=== PATIENT | female | born 1955 | race Two or more races ===

== ENCOUNTER 2017-03-26 17:33 | Inpatient (IN) | payer MEDICARE, MEDICAID ==
[2017-03-26] MEDS ORDERED: Triple Antibiotic 0.94 gm Pkt TP STA (18:30)
[2017-03-26] MEDS ORDERED: Triple Antibiotic 0.94 gm Pkt TP ONE (18:45)
[2017-03-26] MEDS ORDERED: Sulfamethoxazole/TMP 800/160mg Tab PO ONE (18:52)
[2017-03-26] MEDS ORDERED: Sulfamethoxazole/TMP 800/160mg Tab ONE (19:02)
[2017-03-26 19:17] LABS: % BASOPHILS 0.7 % (0.0-2.0); % EOSINOPHILS 3.7 % (0.0-5.0); % LYMPHOCYTES 28.8 % (20.0-50.0); % MONOCYTES 6.4 % (2.0-10.0); % NEUTROPHILS 60.4 % (40.0-80.0); BASOPHILE ABSOLUTE 0.1 Th/cumm (0-0.2); EOSINOPHILE ABSOLUTE 0.4 Th/cmm (0.1-0.4); HEMATOCRIT 26.3 % (41.0-60); HEMOGLOBIN 8.9 gm/dL (12-16); LYMPHOCYTE ABSOLUTE 2.9 Th/cmm (1.5-3.0); MEAN CELL VOLUME 96.1 fl (81-100); MEAN CORPUSCULAR HEMOGLOBIN 32.6 pg (27.0-31.0); MEAN PLATELET VOLUME 7.6 fl; MONOCYTE ABSOLUTE 0.7 Th/cmm (0.3-1.0); NEUTROPHILE ABSOLUTE 6.1 Th/cmm (1.8-8.0); PLATELET COUNT 322 Th/cmm (150-400); RED BLOOD COUNT 2.74 Mil/cmm (3.80-5.10); RED CELL DISTRIBUTION WIDTH 14.3 % (11.5-20.0); WHITE BLOOD COUNT 10.2 Th/cmm (4.8-10.8)
[2017-03-26 19:33] LABS: ALB/GLOB RATIO 0.9 (1.0-1.8); ALBUMIN 3.1 gm/dL (3.7-5.3); ANION GAP 14.9 (7.0-16.0); BILIRUBIN,TOTAL 0.3 mg/dL (0.3-1.0); CALCIUM SERUM 7.9 mg/dL (8.6-10.3); CARBON DIOXIDE 24.2 mEq/L (21.0-31.0); GFR AFRICAN-AMERICAN 13.9 ml/min (>90); GFR NON AFRICAN-AMERICAN 11.5 ml/min; POTASSIUM SERUM 5.1 mEq/L (3.5-5.1); TOTAL PROTEIN,SERUM 6.4 gm/dL (6.0-8.3)
[2017-03-26 19:34] LABS: CHOLESTEROL 153 mg/dL (<200); HDL -HIGH DENSITY LIPOPROTEIN 36 mg/dL (23-92); TRIGLYCERIDES 295 mg/dL (<150)
[2017-03-26 19:36] LABS: CREATININE - SERUM 4.2 mg/dL (0.6-1.2)
[2017-03-26] MEDS ORDERED: Linezolid 600mg/300mL 600 MG/300 ML BAG IV SCH (22:00)
[2017-03-26] MEDS: INSULIN 70/30 100 UNITS/ML SUBQ SCH (22:37)
[2017-03-27 03:29] VITALS: BP 145/82
--- NOTE | 2017-03-27 04:42 | Consultation ---
DATE OF CONSULTATION: 03/26/2017 INFECTIOUS DISEASE CONSULTATION REFERRING PHYSICIAN: Dr. Galicia. REASON FOR CONSULTATION: Left arm swelling, cellulitis and fistula infection. HISTORY OF PRESENT ILLNESS: The patient is a 61-year-old female with a past history of CKD stage V, on hemodialysis; diabetes mellitus type 2, left arm AV shunt with an open wound with very scant yellowish drainage. The patient was afebrile and WBC count was 10,000. The patient was given Bactrim and ____. The patient was started on Zyvox and Infectious Disease consultation was called for further antibiotic management. PAST MEDICAL HISTORY: Includes CKD stage V, on hemodialysis through AV shunt connected to the Perm-A-Cath now on right upper chest, the patient also has an AV shunt/AV fistula, diabetes mellitus type 2, hypertension and CKD stage 5, on hemodialysis. ALLERGIES: NKDA. MEDICATIONS: See medication reconciliation sheet. Antibiotic lópez, the patient is receiving Zyvox. SOCIAL HISTORY: The patient lives at home. Denies any smoking, alcohol or drug use. FAMILY HISTORY: Not available. REVIEW OF SYSTEMS: GENERAL: The patient denies fever or chills. HEENT: No diplopia, no photophobia, no sore throat. RESPIRATORY: No cough, no shortness of breath. CVS: No chest pain or palpitation. GASTROINTESTINAL: No nausea, no vomiting, no diarrhea, no constipation. GENITOURINARY: No dysuria. NEUROLOGIC: No headache, no dizziness, no focal weakness. SKIN: The patient has swelling and redness of the old AV shunt site with some mild discharge. PHYSICAL EXAMINATION: VITAL SIGNS: Current vital signs shows temperature is 96.4, pulse 68, respirations 19, blood pressure 145/82. GENERAL: The patient is comfortable, lying in the bed, not in acute distress. HEENT: Head is normocephalic, atraumatic. Oral cavity moist, pink tongue. Eyes: No pallor, no icterus. PERRLA. EOMI. NECK: Supple. No JVD. No carotid bruit. Trachea in midline. CHEST: Bilateral breath sounds. No crackles or wheezing. HEART: S1, S2 within normal limits. Regular rhythm. ABDOMEN: Soft, nontender, nondistended. Bowel sounds present. EXTREMITIES: No cyanosis, no clubbing, no edema. The patient's left forearm and antecubital fossa, the patient has surgical scar with surrounding erythema. The wound is open with yellow slough and phlegm. CENTRAL NERVOUS SYSTEM: Alert, awake, oriented x 3. LABORATORY DATA: Current labs show WBC 10,200, hemoglobin 8.9, hematocrit 26.3, platelets are 322,000, neutrophil is 60.4%. Sodium is 132, potassium 5.1, chloride 98, bicarbonate is 24, BUN is 47, creatinine 4.2 and glucose is 150. LFTs are reviewed. IMPRESSION: Left arm cellulitis. Left arm wound. RECOMMENDATION AND PLAN: Change Zyvox to vancomycin IV and check the wound culture and susceptibility. Thank you Dr. Galicia for involving me in taking care of this patient. JOB# [id number]
[2017-03-27] MEDS: INSULIN ASPART, RECOMBINANT 100 UNITS/ML SUBQ SCH ×4 (06:38→18:40)
[2017-03-27 07:05] LABS: % BASOPHILS 0.2 % (0.0-2.0); % EOSINOPHILS 4.4 % (0.0-5.0); % LYMPHOCYTES 34.7 % (20.0-50.0); % MONOCYTES 6.3 % (2.0-10.0); % NEUTROPHILS 54.4 % (40.0-80.0); EOSINOPHILE ABSOLUTE 0.4 Th/cmm (0.1-0.4); HEMATOCRIT 26.3 % (41.0-60); HEMOGLOBIN 8.9 gm/dL (12-16); LYMPHOCYTE ABSOLUTE 3.5 Th/cmm (1.5-3.0); MEAN CELL VOLUME 95.6 fl (81-100); MEAN CORPUSCULAR HEMOGLOBIN 32.2 pg (27.0-31.0); MEAN CORPUSCULAR HGB CONC 33.7 pg (28.0-36.0); MEAN PLATELET VOLUME 7.5 fl; MONOCYTE ABSOLUTE 0.6 Th/cmm (0.3-1.0); NEUTROPHILE ABSOLUTE 5.5 Th/cmm (1.8-8.0); PLATELET COUNT 362 Th/cmm (150-400); RED BLOOD COUNT 2.75 Mil/cmm (3.80-5.10)
[2017-03-27 07:18] LABS: ANION GAP 13.4 (7.0-16.0); CALCIUM SERUM 7.9 mg/dL (8.6-10.3); CARBON DIOXIDE 25.7 mEq/L (21.0-31.0); GFR AFRICAN-AMERICAN 13.2 ml/min (>90); GFR NON AFRICAN-AMERICAN 10.9 ml/min; POTASSIUM SERUM 4.1 mEq/L (3.5-5.1)
[2017-03-27 07:22] LABS: CREATININE - SERUM 4.4 mg/dL (0.6-1.2)
[2017-03-27] MEDS ORDERED: INSULIN 70/30 100 UNITS/ML SUBQ SCH (07:30)
[2017-03-27] MEDS: INSULIN 70/30 100 UNITS/ML SUBQ SCH ×2 (08:00→20:24)
[2017-03-27] MEDS: Lactulose 10 Gm/15 mL 30mL UDC PO SCH ×2 (14:49→18:41)
--- NOTE | 2017-03-27 18:31 | History & Physical ---
ADMIT DATE: 03/26/2017 HISTORY OF PRESENT ILLNESS: This is an elderly female. The patient is a 61-year-old female and looks much aged than that, was admitted from the ER for left arm cellulitis, history of end-stage renal disease on hemodialysis, and history of dementia. The patient was admitted, was started on her IVs, and the patient was started on Zyvox. I asked the vascular surgeon to do the vascular access and also had call Dr. Nas Ramirez from Nephrology for dialysis and Infectious Disease doctor, Dr. Kunz. Dr. Kunz opined that the patient has left arm cellulitis, left arm wound, and AV fistula in the left arm. When I was examining the patient, the patient was not able to give me much story. Essentially complaining of severe weakness. He is somewhat lethargic, lying in the bed. PHYSICAL EXAMINATION: HEENT: Normocephalic. Pupils equal and reactive to light. NECK: Supple, nontender. LUNGS: Clear. CARDIOVASCULAR SYSTEM: S1, S2 heard. ABDOMEN: Soft. EXTREMITIES: Left forearm area, a surgical scar surrounding erythema and some yellow slough indicating cellulitis. LABORATORY DATA: Showed white count was 10,000, hemoglobin 8.9, hematocrit was 26, BUN 47, creatinine 4.2 indicating end-stage renal disease stage 5. DIAGNOSES: Left arm cellulitis. Left arm wound, rule out sepsis, history of end-stage renal disease on dialysis, right PermCath and infected left AV shunt area. The patient was started on Zyvox which was changed to vancomycin by Dr. Kunz. The patient had all the lab work done including CBC, white count, and blood cultures. We are waiting for that and we will manage and also patient needs a vascular access at this point and she will go to get a PICC line. JOB# [id number]
[2017-03-27 20:49] LABS: A1C % 8.5 % (4.0-6.0)
[2017-03-28] MEDS: INSULIN ASPART, RECOMBINANT 100 UNITS/ML SUBQ SCH ×4 (00:07→17:35)
--- NOTE | 2017-03-28 02:06 | ER Physician Documentation ---
DATE OF SERVICE: 03/26/2017 EMERGENCY ROOM EVALUATION AND TREATMENT HISTORY OF PRESENT ILLNESS: A 61-year-old female patient, who came into the Emergency Room from home. She was discharged from [facility] where yesterday I believe they tried to put some catheter into the left arm, maybe a shunt into the left arm, but I believe it was unsuccessful or whatever happened, there is a tiny little 1 cm or little more than 1.5 cm type of scar with evidence of localized infection present in the left upper arm and the patient has a Perm-A-Cath placed in the right subclavian vein from where she gets dialysis. She was dialyzed yesterday. She came from home; hence, she did not bring her any medications. Whatever she could remember that is the history she gave me. Her main history is that she came here because she has this hemodialysis program that she gets it and her primary MD is Dr. Galicia, who advised that the patient to go to this institution for further care. At this institution, the triage nurse saw the patient, took the vital signs, temperature was 98.4, pulse was 59, respiration was 18, blood pressure was 129/46, oxygen saturation was 100%, height of 5 feet 2 inches, and weight of 123 pounds. Occasionally, she used to smoke in the past, maybe one cigarette a month, but not now. The patient has no other significant complaints. She said she has end-stage renal failure. There is chronic kidney disease. She has diabetes mellitus. She takes insulin 70/30, 30 units in the morning, 20 units at night time. She does not remember any other medication that she is taking. She says she has schizophrenia and she has hypercholesterolemia. 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 The patient's ENT has no significant complaints. I believe most of her veins are clogged up and there is difficulty in putting in the central catheters, but the surgeon has good job in putting at least a Perm-A-Cath that should last for about 3 months for her. In the meantime, perhaps they can reattempt to put a shunt in the left upper arm. Otherwise, they might have to go into the leg to put it in. Pulmonary lópez, the patient does not have any shortness of breath, PND, orthopnea, dyspnea on exertion. The patient is able to walk with the help of the stick, but the patient is unstable. Hence, she does not usually walk, but she walks as needed. Cardiac lópez, the patient does not have any angina pectoris, myocardial infarction, rheumatic fever, valvular heart disease, pericardial disease, or cardiomyopathy. Endocrine lópez, she has diabetes mellitus, I am not sure whether she has any diabetes; she has any thyroid disease, hypo or hyperthyroidism. We will check the T4 and TSH level, hemoglobin A1c level and see what happens. GI lópez, the patient does not have any diarrhea, constipation, or vomiting. The patient does not have any upper GI bleeding or lower GI bleeding. Genitourinary lópez, the patient does make some urine whenever she has to go; how much urine she makes a quantity lópez she cannot describe, but she does make some urine that is what she told, it is possible that little urine that is residual urine could cause infection in her and that there is a trouble, so we will see if we can get a urine culture in her and urinalysis in her if at all she is able to give it to us. Her bones and joints, no specific complaints. There are no metastatic problems. No back pain. No history of any joint replacement. Hematology and oncology lópez, the patient does not have any tumor, cancers, etc. PHYSICAL EXAMINATION: Done on 03/26/2017, the patient appears to be awake, alert. She knows she came here; yesterday she was at [facility], she described that to me. She came from home. She did not bring any medications with her, so we do not have any medications, perhaps when Dr. Galicia comes in, he might know most of the medications and he might put it in. At the present moment, I have given some doxycycline that should cover the gram-positive as well as some gram-negative and it may cover even the MRSA, these days the doxycycline has come back the old time medication, but the nichols of this drug has also gone up considerably, but 100 mg has been given and I believe 100 mg twice a day might be needed, but Dr. Galicia might know whether she needs this medication or localized treatment in the left arm with localized bacitracin ointment with ____ dressing might also suffice if the patient does not have any problem of systemic infection. The patient does not have any bleeding disorders. She does not have any angina pectoris, rheumatic fever, valvular heart disease, or pericardial disease. The patient's previous surgery includes history of cholecystectomy. The patient's abdomen is a big, protuberant, but is just obese lady. There is no ascites present in the abdomen. There is also another midline small about 2-inch scar in the midline which she does not know why that scar is there, but the scar is over there. The patient's liver and spleen are not enlarged. No free fluid in the abdominal cavity. Central nervous system is grossly within normal limits. Heart reveals normal heart sounds. Soft fourth heart sound. Third heart sound is absent. Second heart sound is physiologically split. The patient denied any myocardial infarction. As I mentioned earlier, EKG was done by the tax map technician at 06:20:45 second p.m. showing normal sinus rhythm. There is suggestion of old inferior wall myocardial infarction. There is minor nonspecific ST segment depression, which may be secondary to the drug effect and/or possible ischemia, drug effect, etc., but no acute severe pathology of cardiac problem is detected. Old inferior wall LA is a very likely possibility, sometimes Q-waves are seen in the inferior wall as a result of obesity and obese abdomen. Central nervous system is grossly within normal limits, moves all of the extremities, no edema, no cyanosis, no petechia, and no ecchymosis. Peripheral pulses are normal. Reflexes are normal. Plantars are downgoing. FINAL IMPRESSION: The patient presented to our institution from home, a patient of Dr. Galicia and she has the following problems: 1. Chronic kidney disease. 2. Diabetes mellitus, noninsulin-dependent. She is on insulin 70/30, 30 units in the morning, 20 at night. 3. The patient has hypertension. 4. The patient has been on hemodialysis program. She got hemodialysis done yesterday. She had a shunt, Perm-A-Cath inserted into the right subclavian vein and the patient has small incisional infection into the left arm from where I believe they might have tried to put in a shunt, I am not sure, Dr. Galicia should let you know. Most of the baseline medication orders are written there. Family history was unknown and hence it is not inserted. She is not . She has no children according to her. She lives in caretakers home and how much money she is giving is not known, but she is happy and comfortable over there. The patient will notify Dr. Galicia that the patient is here and we will see what he wants to do and depending upon what he wants to do, we will do the needful as this patient belongs to him. The other diagnosis is mild obesity. Any other diagnosis that Dr. Galicia might remember will be put it on. The patient also has schizophrenia, chronic kidney disease, hypertension, and possible hypertensive heart disease. Most likely, the patient has old inferior wall myocardial infarction and diabetes mellitus is secondary to coronary artery disease in 500-700% of the patients, this is likely the cause of the renal failure and in this patient also probably that is the cause. [facility]# [id number]
[2017-03-28 05:27] LABS: % BASOPHILS 0.8 % (0.0-2.0); % LYMPHOCYTES 34.2 % (20.0-50.0); % MONOCYTES 7.4 % (2.0-10.0); % NEUTROPHILS 52.6 % (40.0-80.0); BASOPHILE ABSOLUTE 0.1 Th/cumm (0-0.2); EOSINOPHILE ABSOLUTE 0.5 Th/cmm (0.1-0.4); HEMATOCRIT 26.3 % (41.0-60); HEMOGLOBIN 8.6 gm/dL (12-16); LYMPHOCYTE ABSOLUTE 3.3 Th/cmm (1.5-3.0); MEAN CELL VOLUME 96.5 fl (81-100); MEAN CORPUSCULAR HEMOGLOBIN 31.7 pg (27.0-31.0); MEAN CORPUSCULAR HGB CONC 32.8 pg (28.0-36.0); MEAN PLATELET VOLUME 7.2 fl; MONOCYTE ABSOLUTE 0.7 Th/cmm (0.3-1.0); NEUTROPHILE ABSOLUTE 5.1 Th/cmm (1.8-8.0); PLATELET COUNT 330 Th/cmm (150-400); RED BLOOD COUNT 2.72 Mil/cmm (3.80-5.10); RED CELL DISTRIBUTION WIDTH 14.4 % (11.5-20.0); WHITE BLOOD COUNT 9.7 Th/cmm (4.8-10.8)
[2017-03-28 05:51] LABS: ANION GAP 11.9 (7.0-16.0); BILIRUBIN,TOTAL 0.3 mg/dL (0.3-1.0); CARBON DIOXIDE 25.6 mEq/L (21.0-31.0); GFR AFRICAN-AMERICAN 10.2 ml/min (>90); GFR NON AFRICAN-AMERICAN 8.4 ml/min; PHOSPHOROUS 4.5 mg/dL (2.5-5.0); POTASSIUM SERUM 4.5 mEq/L (3.5-5.1)
[2017-03-28 05:56] LABS: CREATININE - SERUM 5.5 mg/dL (0.6-1.2)
[2017-03-28 06:00] LABS: INR 0.97 (0.5-1.4); PROTHROMBIN TIME (TEST) 10.1 SECONDS (9.5-11.5)
--- NOTE | 2017-03-28 06:03 | Consultation ---
DATE OF CONSULTATION: 03/27/2017 AGE OF PATIENT: 61 years. SEX: Female. RACE: . REASON FOR CONSULTATION: Evaluation of renal status and management. HISTORY OF PRESENT ILLNESS: This patient is not able to give much more detailed history. She only knows that she has been on dialysis for 2 years and Tuesday, apparently, the access was not working and they put in a new catheter in the right subclavian area. In addition to that, it looks like somebody has close the old fistula on the left arm area, reason for this is not known, but patient states, that was infected, that is why they had to "close it." The patient does not know much more details. She lives in the care of a rn prior authorization in [facility]. The patient has been referred to me through the courtesy of Dr. Galicia. The patient stated that she gets dialyzed on Tuesday, Tuesday and Tuesday. Last dialysis was done on Tuesday. The patient denies any chest pain, shortness of breath or any other problems right now. PAST MEDICAL HISTORY: Considering the history available on examination, the patient does have a history of diabetes mellitus, hypertension, and also the patient is on dialysis for probably secondary to chronic renal failure suggested by. SOCIAL HISTORY: On further questioning and history taking, the patient stated she had been a smoker for a long time. She has stopped now. She had been also drinking on the weekends. 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 Not much more history available. MEDICATIONS: List of medications got from the rn prior authorization had been amlodipine 10 mg p.o. daily; bupropion 150 mg p.o. daily, which is Wellbutrin sustained release; buspirone 15 mg daily; carvedilol 12.5 mg b.i.d.; hydrochlorothiazide 25 mg daily; also quinapril 10 mg daily; Renvela, dose is not known. The patient has been also taking Detrol-LA along with insulin coverage. PHYSICAL EXAMINATION: VITAL SIGNS: On clinical examination, the patient is afebrile at the present time. Blood pressures are somewhat on the low side as per nursing treatment. Heart rate is around 80 per minute. Latest blood pressures had been 115/62, 97.2 degree temperature, respirations 22, and O2 saturation 99%. NECK: Jugular venous pressure is not raised. CHEST: Reveals good air entry bilaterally. CARDIOVASCULAR: Heart sounds S1, S2 normally heard. No S3 or S4 noticed. ABDOMEN: Soft, nontender. EXTREMITIES: She does not have any significant edema at the present time. NEUROLOGIC: On further evaluation, neurologically, although she speaks with a slowest speech, does not seem to be having any local or focal weakness. LABORATORY DATA: Last chemistries which are as follows: Hemoglobin 8.9 grams percent; WBC count 10,000. Sodium 135, potassium 4.1, chloride 100, CO2 content 25.7, creatinine 4.4 and BUN 52. The patient's catheter was removed. Sutures are still there in the left arm and left subclavian area. PLAN: To review these medications and would suggest discontinuing hydrochlorothiazide, since the patient is on dialysis, also reducing the amlodipine to 5 mg daily since blood pressure is running low. Leave the other medications to Dr. Galicia to modify. The patient is not on water soluble vitamins, which need to be on, so patient would be on Nephro-Ramirez 1 tablet p.o. daily. The patient will be dialyzed tomorrow and repeat the chemistries and reviewed again what further needs to be done. [facility]# [id number]
[2017-03-28] MEDS: INSULIN 70/30 100 UNITS/ML SUBQ SCH ×2 (06:34→21:54)
--- NOTE | 2017-03-28 10:17 | General Progress Note ---
Subjective - Review of Systems Events since last encounter: patient tolerating antibiotics admitted for left arm cellulitis r/o sepsis Objective - Results Result Diagrams: 03/28/17 05:16 03/28/17 05:16 Recent Labs: Laboratory Last Values WBC 9.7 Th/cmm (4.8-10.8) 03/28/17 05:16 RBC 2.72 Mil/cmm (3.80-5.10) L 03/28/17 05:16 Hgb 8.6 gm/dL (12-16) L 03/28/17 05:16 Hct 26.3 % (41.0-60) L 03/28/17 05:16 MCV 96.5 fl (81-100) 03/28/17 05:16 MCH 31.7 pg (27.0-31.0) H 03/28/17 05:16 MCHC Differential 32.8 pg (28.0-36.0) 03/28/17 05:16 RDW 14.4 % (11.5-20.0) 03/28/17 05:16 Plt Count 330 Th/cmm (150-400) 03/28/17 05:16 MPV 7.2 fl 03/28/17 05:16 Neutrophils % 52.6 % (40.0-80.0) 03/28/17 05:16 Lymphocytes % 34.2 % (20.0-50.0) 03/28/17 05:16 Monocytes % 7.4 % (2.0-10.0) 03/28/17 05:16 Eosinophils % 5.0 % (0.0-5.0) 03/28/17 05:16 Basophils % 0.8 % (0.0-2.0) 03/28/17 05:16 PT 10.1 SECONDS (9.5-11.5) 03/28/17 05:16 INR 0.97 (0.5-1.4) 03/28/17 05:16 PTT (Actin FS) 26.2 SECONDS (26.0-38.0) 03/28/17 05:16 Sodium 134 mEq/L (136-145) L 03/28/17 05:16 Potassium 4.5 mEq/L (3.5-5.1) 03/28/17 05:16 Chloride 101 mEq/L (98-107) 03/28/17 05:16 Carbon Dioxide 25.6 mEq/L (21.0-31.0) 03/28/17 05:16 Anion Gap 11.9 (7.0-16.0) 03/28/17 05:16 BUN 66 mg/dL (7-25) H 03/28/17 05:16 Creatinine 5.5 mg/dL (0.6-1.2) H* 03/28/17 05:16 Est GFR ( Amer) 10.2 ml/min (>90) 03/28/17 05:16 Est GFR (Non-Af Amer) 8.4 ml/min 03/28/17 05:16 BUN/Creatinine Ratio 12.0 03/28/17 05:16 Glucose 92 mg/dL (70-105) 03/28/17 05:16 POC Glucose 93 MG/DL (70 - 105) 03/28/17 05:14 Hemoglobin A1c % 8.5 % (4.0-6.0) H 03/26/17 18:58 Whole Bld Lactic Acid 1.33 mmol/L (0.60-1.99) 03/26/17 18:58 Calcium 8.0 mg/dL (8.6-10.3) L 03/28/17 05:16 Phosphorus 4.5 mg/dL (2.5-5.0) 03/28/17 05:16 Total Bilirubin 0.3 mg/dL (0.3-1.0) 03/28/17 05:16 AST 10 U/L (13-39) L 03/28/17 05:16 ALT 10 U/L (7-52) 03/28/17 05:16 Alkaline Phosphatase 59 U/L (34-104) 03/28/17 05:16 C-Reactive Protein 4.2 mg/dL (0.0-0.9) H 03/26/17 18:58 B-Natriuretic Peptide 173.0 pg/mL (5.0-100.0) H 03/26/17 18:58 Total Protein 6.0 gm/dL (6.0-8.3) 03/28/17 05:16 Albumin 3.0 gm/dL (3.7-5.3) L 03/28/17 05:16 Globulin 3.0 gm/dL 03/28/17 05:16 Albumin/Globulin Ratio 1.0 (1.0-1.8) 03/28/17 05:16 Triglycerides 295 mg/dL (<150) H 03/26/17 18:58 Cholesterol 153 mg/dL (<200) 03/26/17 18:58 LDL Cholesterol Direct 92 mg/dL (75-193) 03/26/17 18:58 HDL Cholesterol 36 mg/dL (23-92) 03/26/17 18:58 TSH 0.95 uIU/ml (0.34-5.60) 03/26/17 18:58 Random Vancomycin 20.1 ug/mL (5.0-40.0) 03/28/17 05:16 - Physical Exam Vitals and I&O: Vital Signs Temp 97.4 F 03/28/17 07:56 Pulse 56 03/28/17 07:56 Resp 20 03/28/17 07:56 BP 130/59 03/28/17 07:56 Pulse Ox 97 03/28/17 07:56 Intake & Output 03/27/17 03/28/17 03/28/17 18:59 06:59 18:59 Intake Total 800 Balance 800 Weight (lbs) 88.904 kg 89.993 kg Intake: Oral 800 Other: # Voids 3 # Bowel Movements 0 Active Medications: Current Medications Amlodipine Besylate (Norvasc) 5 mg PO DAILY [facility] Stop: 05/26/17 11:29 Last Admin: 03/27/17 12:13 Dose: 5 mg Bupropion HCl (Wellbutrin Sr) 150 mg PO DAILY [facility] PRN Reason: Protocol Stop: 05/27/17 08:59 Buspirone HCl (Buspar) 15 mg PO DAILY [facility] Stop: 05/27/17 08:59 Carvedilol (Coreg) 12.5 mg PO BID [facility] Stop: 05/26/17 16:59 Last Admin: 03/27/17 17:54 Dose: 12.5 mg Epoetin Jacek (Epogen) 4,000 units IVP MoWeFr [facility] Stop: 05/27/17 11:23 Insulin Aspart (Novolog) 0 units SUBQ Q6HR [place] PRN Reason: Protocol Stop: 05/26/17 00:00 Last Admin: 03/28/17 05:22 Dose: Not Given Insulin Human Isoph/Insulin Regular (Novolin 70/30) 20 units SUBQ HS [place] PRN Reason: Protocol Stop: 05/25/17 21:29 Last Admin: 03/27/17 20:24 Dose: 20 units Insulin Human Isoph/Insulin Regular (Novolin 70/30) 30 units SUBQ QDAC [place] PRN Reason: Protocol Stop: 05/26/17 07:29 Last Admin: 03/28/17 06:34 Dose: Not Given Lactulose (Cephulac) 20 gm PO BID [place] Stop: 05/26/17 13:44 Last Admin: 03/27/17 18:41 Dose: Not Given Lisinopril (Zestril) 10 mg PO DAILY [facility] Stop: 05/27/17 08:59 Miscellaneous (Vancomycin Iv Per Pharmacy) 1 ea [facility] PRN [place] Stop: 05/26/17 03:14 Sevelamer Carbonate (Renvela) 800 mg PO TIDWM [place] Stop: 05/26/17 16:59 Last Admin: 03/28/17 07:02 Dose: 800 mg
[2017-03-28] MEDS: Lactulose 10 Gm/15 mL 30mL UDC PO SCH ×2 (10:38→17:30)
--- NOTE | 2017-03-28 12:37 | Infectious Disease Prog Note ---
Infectious Disease Subjective - Review of Systems Service Date: 03/28/17 Subjective: No chnage, no fever. Infectious Disease Objective - Results Result Diagrams: 03/28/17 05:16 03/28/17 05:16 Recent Labs: Laboratory Last Values WBC 9.7 Th/cmm (4.8-10.8) 03/28/17 05:16 RBC 2.72 Mil/cmm (3.80-5.10) L 03/28/17 05:16 Hgb 8.6 gm/dL (12-16) L 03/28/17 05:16 Hct 26.3 % (41.0-60) L 03/28/17 05:16 MCV 96.5 fl (81-100) 03/28/17 05:16 MCH 31.7 pg (27.0-31.0) H 03/28/17 05:16 MCHC Differential 32.8 pg (28.0-36.0) 03/28/17 05:16 RDW 14.4 % (11.5-20.0) 03/28/17 05:16 Plt Count 330 Th/cmm (150-400) 03/28/17 05:16 MPV 7.2 fl 03/28/17 05:16 Neutrophils % 52.6 % (40.0-80.0) 03/28/17 05:16 Lymphocytes % 34.2 % (20.0-50.0) 03/28/17 05:16 Monocytes % 7.4 % (2.0-10.0) 03/28/17 05:16 Eosinophils % 5.0 % (0.0-5.0) 03/28/17 05:16 Basophils % 0.8 % (0.0-2.0) 03/28/17 05:16 PT 10.1 SECONDS (9.5-11.5) 03/28/17 05:16 INR 0.97 (0.5-1.4) 03/28/17 05:16 PTT (Actin FS) 26.2 SECONDS (26.0-38.0) 03/28/17 05:16 Sodium 134 mEq/L (136-145) L 03/28/17 05:16 Potassium 4.5 mEq/L (3.5-5.1) 03/28/17 05:16 Chloride 101 mEq/L (98-107) 03/28/17 05:16 Carbon Dioxide 25.6 mEq/L (21.0-31.0) 03/28/17 05:16 Anion Gap 11.9 (7.0-16.0) 03/28/17 05:16 BUN 66 mg/dL (7-25) H 03/28/17 05:16 Creatinine 5.5 mg/dL (0.6-1.2) H* 03/28/17 05:16 Est GFR ( Amer) 10.2 ml/min (>90) 03/28/17 05:16 Est GFR (Non-Af Amer) 8.4 ml/min 03/28/17 05:16 BUN/Creatinine Ratio 12.0 03/28/17 05:16 Glucose 92 mg/dL (70-105) 03/28/17 05:16 POC Glucose 136 MG/DL (70 - 105) H 03/28/17 11:54 Hemoglobin A1c % 8.5 % (4.0-6.0) H 03/26/17 18:58 Whole Bld Lactic Acid 1.33 mmol/L (0.60-1.99) 03/26/17 18:58 Calcium 8.0 mg/dL (8.6-10.3) L 03/28/17 05:16 Phosphorus 4.5 mg/dL (2.5-5.0) 03/28/17 05:16 Total Bilirubin 0.3 mg/dL (0.3-1.0) 03/28/17 05:16 AST 10 U/L (13-39) L 03/28/17 05:16 ALT 10 U/L (7-52) 03/28/17 05:16 Alkaline Phosphatase 59 U/L (34-104) 03/28/17 05:16 C-Reactive Protein 4.2 mg/dL (0.0-0.9) H 03/26/17 18:58 B-Natriuretic Peptide 173.0 pg/mL (5.0-100.0) H 03/26/17 18:58 Total Protein 6.0 gm/dL (6.0-8.3) 03/28/17 05:16 Albumin 3.0 gm/dL (3.7-5.3) L 03/28/17 05:16 Globulin 3.0 gm/dL 03/28/17 05:16 Albumin/Globulin Ratio 1.0 (1.0-1.8) 03/28/17 05:16 Triglycerides 295 mg/dL (<150) H 03/26/17 18:58 Cholesterol 153 mg/dL (<200) 03/26/17 18:58 LDL Cholesterol Direct 92 mg/dL (75-193) 03/26/17 18:58 HDL Cholesterol 36 mg/dL (23-92) 03/26/17 18:58 TSH 0.95 uIU/ml (0.34-5.60) 03/26/17 18:58 Random Vancomycin 20.1 ug/mL (5.0-40.0) 03/28/17 05:16 - Physical Exam Vitals and I&O: Vital Signs Temp 97.4 F 03/28/17 07:56 Pulse 60 03/28/17 10:40 Resp 20 03/28/17 07:56 BP 130/59 03/28/17 10:40 Pulse Ox 97 03/28/17 07:56 Intake & Output 03/27/17 03/28/17 03/28/17 18:59 06:59 18:59 Intake Total 800 Balance 800 Weight (lbs) 88.904 kg 89.993 kg Intake: Oral 800 Other: # Voids 3 # Bowel Movements 0 Active Medications: Current Medications Amlodipine Besylate (Norvasc) 5 mg PO DAILY [facility] Stop: 05/26/17 11:29 Last Admin: 03/28/17 10:38 Dose: 5 mg Bupropion HCl (Wellbutrin Sr) 150 mg PO DAILY [facility] PRN Reason: Protocol Stop: 05/27/17 08:59 Last Admin: 03/28/17 10:40 Dose: 150 mg Buspirone HCl (Buspar) 15 mg PO DAILY [facility] Stop: 05/27/17 08:59 Last Admin: 03/28/17 10:39 Dose: 15 mg Carvedilol (Coreg) 12.5 mg PO BID [facility] Stop: 05/26/17 16:59 Last Admin: 03/28/17 10:40 Dose: 12.5 mg Epoetin Jacek (Epogen) 4,000 units IVP MoWeFr [facility] Stop: 05/27/17 17:59 Vancomycin HCl 1.25 gm/ (Dextrose) 250 mls @ 165 mls/hr IV ONCE ONE Stop: 03/28/17 18:30 Insulin Aspart (Novolog) 0 units SUBQ Q6HR [place] PRN Reason: Protocol Stop: 05/26/17 00:00 Last Admin: 03/28/17 12:24 Dose: Not Given Insulin Human Isoph/Insulin Regular (Novolin 70/30) 20 units SUBQ HS [place] PRN Reason: Protocol Stop: 05/25/17 21:29 Last Admin: 03/27/17 20:24 Dose: 20 units Insulin Human Isoph/Insulin Regular (Novolin 70/30) 30 units SUBQ QDAC [place] PRN Reason: Protocol Stop: 05/26/17 07:29 Last Admin: 03/28/17 06:34 Dose: Not Given Lactulose (Cephulac) 20 gm PO BID [facility] Stop: 05/26/17 13:44 Last Admin: 03/28/17 10:38 Dose: 20 gm Lisinopril (Zestril) 10 mg PO DAILY [place] Stop: 05/27/17 08:59 Last Admin: 03/28/17 10:39 Dose: 10 mg Miscellaneous (Vancomycin Iv Per Pharmacy) 1 ea [facility] PRN [place] Stop: 05/26/17 03:14 Sevelamer Carbonate (Renvela) 800 mg PO TIDWM [place] Stop: 05/26/17 16:59 Last Admin: 03/28/17 07:02 Dose: 800 mg General: no acute distress, well developed, well nourished HEENT: atraumatic, normocephalic, PERRLA Neck: supple, no thyromegaly, no lymphadenopathy Cardiovascular: S1S2, regular Lungs: clear to auscultation bilaterally, clear to percussion Abdomen: soft, no tender, no distended Extremities: other (left arm wound.), no cyanosis, no clubbing, no edema Infectious Disease Assmt/Plan - Assessment Assessment: 1. Left arm cellulitis. 2. Left arm wound. - Plan Plan: Continue vancomycin/
[2017-03-28] MEDS: Epoetin Alfa 20000 Units/mL Vial IVP SCH (21:53)
[2017-03-29] MEDS: INSULIN ASPART, RECOMBINANT 100 UNITS/ML SUBQ SCH ×4 (05:39→17:07)
[2017-03-29] MEDS: INSULIN 70/30 100 UNITS/ML SUBQ SCH ×2 (06:33→20:59)
--- NOTE | 2017-03-29 07:53 | Consultation ---
DATE OF CONSULTATION: The patient was seen and evaluated. The patient's chart reviewed. This is Dr. Cerda doing initial psychiatric evaluation. CONSULTING PHYSICIAN: Dr. Cerda. REFERRING PHYSICIAN: Dr. Galicia. REASON FOR CONSULTATION: History of depression. HISTORY OF PRESENT ILLNESS: She is a 61-year-old female with a previous history of depression, admitted here from the ER for left arm cellulitis and history of end-stage renal disease, on hemodialysis. She was also started on Zyvox. Today on [id number] evaluation, the patient reported that she has been on Wellbutrin and BuSpar for quite some time and reports that her anxiety and depression has been under control. She denies any suicidal or homicidal ideation. She reports her mood is okay, sleeping well, good appetite. Denies any adverse effects of medications or side effects of medications. PAST PSYCHIATRIC HISTORY: Depression. PAST MEDICAL HISTORY: Includes left arm cellulitis, CKD, history of hypertension, diabetes, on hemodialysis. ALLERGIES TO MEDICATIONS: NKDA. FAMILY PSYCHIATRIC HISTORY: Denied. LEGAL HISTORY: Denied. PSYCHOSOCIAL ENVIRONMENTAL HISTORY: ____ home, has a caregiver. Denies any illicit drug use. Denies any alcohol. Denies any tobacco. CURRENT MEDICATIONS: Bupropion 150 a day, Coreg, Epogen, lactulose, BuSpar 50 mg a day. LABORATORY DATA: Labs reviewed. Sodium of 135, BUN and creatinine are 52 and 4.4 respectively. Pending ammonia levels. MENTAL STATUS EXAMINATION: She is calm in her room, engaged inappropriately. No suicidal or homicidal ideation. Awake and alert x 3. Good insight, judgment and impulse control. No psychosis, no delusions. Suicidal or homicidal risk is low, no ideation, no plan, no intent, no ____. ASSESSMENT: The patient is a 61-year-old female with a history of depression, stabilized medically with the current psychiatric medications. Recommend to check ammonia levels. Recommend to continue monitoring and evaluating. PRIMARY DIAGNOSES: Major depressive disorder, severe, recurrent, without psychosis. SECONDARY DIAGNOSES: None. MEDICAL DIAGNOSES: As noted above. PLAN: 1. ____. 2. Continue monitoring and evaluating. 3. Continue Wellbutrin with BuSpar. 4. Thank you for the consultation. We will continue to follow alongside. 5. Discussed coping skills, provide supportive therapy and discussed the plan in great detail with the staff. [facility]# [id number]
[2017-03-29] MEDS: Lactulose 10 Gm/15 mL 30mL UDC PO SCH ×2 (09:31→16:08)
--- NOTE | 2017-03-29 11:27 | General Progress Note ---
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, occluded has right subclavian Permcath needl blood culture, removal of left foream graft due to infection will document graft patency by ultrasound Objective - Results Result Diagrams: 03/28/17 05:16 03/28/17 05:16 Recent Labs: Laboratory Last Values WBC 9.7 Th/cmm (4.8-10.8) 03/28/17 05:16 RBC 2.72 Mil/cmm (3.80-5.10) L 03/28/17 05:16 Hgb 8.6 gm/dL (12-16) L 03/28/17 05:16 Hct 26.3 % (41.0-60) L 03/28/17 05:16 MCV 96.5 fl (81-100) 03/28/17 05:16 MCH 31.7 pg (27.0-31.0) H 03/28/17 05:16 MCHC Differential 32.8 pg (28.0-36.0) 03/28/17 05:16 RDW 14.4 % (11.5-20.0) 03/28/17 05:16 Plt Count 330 Th/cmm (150-400) 03/28/17 05:16 MPV 7.2 fl 03/28/17 05:16 Neutrophils % 52.6 % (40.0-80.0) 03/28/17 05:16 Lymphocytes % 34.2 % (20.0-50.0) 03/28/17 05:16 Monocytes % 7.4 % (2.0-10.0) 03/28/17 05:16 Eosinophils % 5.0 % (0.0-5.0) 03/28/17 05:16 Basophils % 0.8 % (0.0-2.0) 03/28/17 05:16 PT 10.1 SECONDS (9.5-11.5) 03/28/17 05:16 INR 0.97 (0.5-1.4) 03/28/17 05:16 PTT (Actin FS) 26.2 SECONDS (26.0-38.0) 03/28/17 05:16 Sodium 134 mEq/L (136-145) L 03/28/17 05:16 Potassium 4.5 mEq/L (3.5-5.1) 03/28/17 05:16 Chloride 101 mEq/L (98-107) 03/28/17 05:16 Carbon Dioxide 25.6 mEq/L (21.0-31.0) 03/28/17 05:16 Anion Gap 11.9 (7.0-16.0) 03/28/17 05:16 BUN 66 mg/dL (7-25) H 03/28/17 05:16 Creatinine 5.5 mg/dL (0.6-1.2) H* 03/28/17 05:16 Est GFR ( Amer) 10.2 ml/min (>90) 03/28/17 05:16 Est GFR (Non-Af Amer) 8.4 ml/min 03/28/17 05:16 BUN/Creatinine Ratio 12.0 03/28/17 05:16 Glucose 92 mg/dL (70-105) 03/28/17 05:16 POC Glucose 79 MG/DL (70 - 105) 03/29/17 05:16 Hemoglobin A1c % 8.5 % (4.0-6.0) H 03/26/17 18:58 Whole Bld Lactic Acid 1.33 mmol/L (0.60-1.99) 03/26/17 18:58 Calcium 8.0 mg/dL (8.6-10.3) L 03/28/17 05:16 Phosphorus 4.5 mg/dL (2.5-5.0) 03/28/17 05:16 Total Bilirubin 0.3 mg/dL (0.3-1.0) 03/28/17 05:16 AST 10 U/L (13-39) L 03/28/17 05:16 ALT 10 U/L (7-52) 03/28/17 05:16 Alkaline Phosphatase 59 U/L (34-104) 03/28/17 05:16 C-Reactive Protein 4.2 mg/dL (0.0-0.9) H 03/26/17 18:58 B-Natriuretic Peptide 173.0 pg/mL (5.0-100.0) H 03/26/17 18:58 Total Protein 6.0 gm/dL (6.0-8.3) 03/28/17 05:16 Albumin 3.0 gm/dL (3.7-5.3) L 03/28/17 05:16 Globulin 3.0 gm/dL 03/28/17 05:16 Albumin/Globulin Ratio 1.0 (1.0-1.8) 03/28/17 05:16 Triglycerides 295 mg/dL (<150) H 03/26/17 18:58 Cholesterol 153 mg/dL (<200) 03/26/17 18:58 LDL Cholesterol Direct 92 mg/dL (75-193) 03/26/17 18:58 HDL Cholesterol 36 mg/dL (23-92) 03/26/17 18:58 TSH 0.95 uIU/ml (0.34-5.60) 03/26/17 18:58 Random Vancomycin 20.1 ug/mL (5.0-40.0) 03/28/17 05:16 - Physical Exam Vitals and I&O: Vital Signs Temp 98.3 F 03/29/17 08:00 Pulse 61 03/29/17 09:30 Resp 18 03/29/17 08:00 BP 121/37 03/29/17 09:30 Pulse Ox 98 03/29/17 08:00 Intake & Output 03/28/17 03/29/17 03/29/17 18:59 06:59 18:59 Intake Total 650 50 Balance 650 50 Weight (lbs) 89.993 kg 89.902 kg Intake: Oral 650 50 Other: # Voids 5 3 # Bowel Movements 4 Active Medications: Current Medications Amlodipine Besylate (Norvasc) 5 mg PO DAILY [facility] Stop: 05/26/17 11:29 Last Admin: 03/29/17 09:28 Dose: 5 mg Bupropion HCl (Wellbutrin Sr) 150 mg PO DAILY [facility] PRN Reason: Protocol Stop: 05/27/17 08:59 Last Admin: 03/29/17 09:29 Dose: 150 mg Buspirone HCl (Buspar) 15 mg PO DAILY [facility] Stop: 05/27/17 08:59 Last Admin: 03/29/17 09:27 Dose: 15 mg Carvedilol (Coreg) 12.5 mg PO BID [facility] Stop: 05/26/17 16:59 Last Admin: 03/29/17 09:30 Dose: 12.5 mg Epoetin Jacek (Epogen) 4,000 units IVP MoWeFr [facility] Stop: 05/27/17 17:59 Last Admin: 03/28/17 21:53 Dose: 4,000 units Cefepime HCl 1 gm/ Sodium (Chloride) 50 mls @ 100 mls/hr IV Q12HR [facility] Stop: 05/28/17 20:59 Insulin Aspart (Novolog) 0 units SUBQ Q6HR [place] PRN Reason: Protocol Stop: 05/26/17 00:00 Last Admin: 03/29/17 05:39 Dose: Not Given Insulin Human Isoph/Insulin Regular (Novolin 70/30) 20 units SUBQ HS [place] PRN Reason: Protocol Stop: 05/25/17 21:29 Last Admin: 03/28/17 21:54 Dose: 20 units Insulin Human Isoph/Insulin Regular (Novolin 70/30) 30 units SUBQ QDAC [place] PRN Reason: Protocol Stop: 05/26/17 07:29 Last Admin: 03/29/17 06:33 Dose: Not Given Lactulose (Cephulac) 20 gm PO BID [facility] Stop: 05/26/17 13:44 Last Admin: 03/29/17 09:31 Dose: 20 gm Lisinopril (Zestril) 10 mg PO DAILY [facility] Stop: 05/27/17 08:59 Last Admin: 03/29/17 09:28 Dose: 10 mg Sevelamer Carbonate (Renvela) 800 mg PO TIDWM [facility] Stop: 05/26/17 16:59 Last Admin: 03/29/17 07:04 Dose: 800 mg Nutritional Asmnt/Malnutr-PDOC - Dietary Evaluation Malnutrition Findings (Please click <Entered> for more info): Nutritional Asmnt/Malnutrition Start: 03/28/17 15: 11 Text: Status: Complete Freq: Document 03/28/17 15:11 [email or web address] (Rec: 03/28/17 15:37 LCHENG [email or web address]) Nutritional Asmnt/Malnutrition Patient General Information Nutritional Screening High Risk Consult Diagnosis left arm cellulitis Pertinent Medical Hx/Surgical Hx ESRD on HD, dementia Subjective Information Consult received for DM. Pt seen sitting on bed having lunch at time of visit. Pt reported good appetite, no food preference. Per EMR, PO intake 100% of breakfast on . Per notes, pt has dialysis today. Current Diet Order/ Nutrition Support Regular Pertinent Medications novolog, novolin, cephulac, vancomycin, renvela Pertinent Labs 03/28 Na 134, K 4.5, Cl 101, BUN 66, Cr 5.5, Glucose 92, POC 93-136, Ca 8.0, Phos 4.5 Nutritional Hx/Data Height 1.57 m Height (Calculated Centimeters) 157.5 Current Weight (lbs) 89.993 kg Weight (Calculated Kilograms) 90.0 Weight (Calculated Grams) 73927.7 [place] Body Weight 110 % [place] Body Weight 180 Body Mass Index (BMI) 36.3 Weight Status Obese GI Symptoms GI Symptoms None Last BM none Difficult in: None Skin Integrity/Comment: right upper arm A/V shut area wound Estimated Nutritional Goals BEE in Kcals: Adj wt of IBW Calories/Kcals/Kg 25-30 Kcals Calculated [id number] Protein: Adj wt of IBW Protein g/k-1.2 Protein Calculated 60-72 Fluid: ml 1500-1800ml (1ml/kcal) or per MD Nutritional Problem 2. Problem Problem increased nutrition needs ( protein) Etiology increased protein loss and wound Signs/Symptoms: pt on HD and left arm cellulitis 1. Problem Problem altered nutrition related lab values Etiology hx of ESRD Signs/Symptoms: BUN 66, Cr 5.5 Malnutrition Alert Protein-Calorie Malnutrition N/A Is there a minimum of two criteria No selected? Query Text:Check all the applicable criteria. A minimum of two criteria are recommended for diagnosis of either severe or non-severe malnutrition. Intervention/Recommendation Comments 1. Continue with current diet as ordered. Encouraged protein intake. 2. Monitor PO intake, wt, labs and skin integrity 3. F/U as moderate risk in 3-5 days, 2/1-2/3 Expected Outcomes/Goals Expected Outcomes/Goals 1. PO intake to meet at least 75% of nutritional needs. 2. Wt stability, skin to remain intact, labs to improve
--- NOTE | 2017-03-29 14:36 | Diagnostic Imaging Report ---
Left upper extremity arterial Doppler History: Pain assess patency of left forearm AV shunt Comparison: None Technique/procedure: Sonography of the left upper arteries was performed with Doppler analysis. Findings: Mild atherosclerotic vascular disease is seen with biphasic waveforms seen distally. No sonographic evidence of occlusion. The left upper extremity shunt was not well visualized. IMPRESSION: The left upper extremity shunt was not well-visualized. Partial occlusion or occlusion cannot be excluded. Recommend clinical correlation and follow-up. If indicated dedicated fistulogram may be obtained. Mild atherosclerotic vascular disease.
[2017-03-29 18:11] LABS: FERRITIN 910 ng/mL (15-150); IRON LC 95 ug/dL (27-159); TIBC (LC) 198 ug/dL (250-450); UIBC 103 ug/dL (131-425)
[2017-03-29] MEDS: Cefepime 1 GM in Sodium Chloride 0.9% 50 ML IV SCH (20:59)
--- NOTE | 2017-03-29 21:11 | Internal Medicine Prog Note ---
Internal Medicine Subjective - Subjective Service Date: 03/29/17 Patient seen and examined:: with staff Patient is:: awake Per staff patient has:: tolerating meds Internal Medicine Objective - Results Result Diagrams: 03/28/17 05:16 03/28/17 05:16 Recent Labs: Laboratory Last Values WBC 9.7 Th/cmm (4.8-10.8) 03/28/17 05:16 RBC 2.72 Mil/cmm (3.80-5.10) L 03/28/17 05:16 Hgb 8.6 gm/dL (12-16) L 03/28/17 05:16 Hct 26.3 % (41.0-60) L 03/28/17 05:16 MCV 96.5 fl (81-100) 03/28/17 05:16 MCH 31.7 pg (27.0-31.0) H 03/28/17 05:16 MCHC Differential 32.8 pg (28.0-36.0) 03/28/17 05:16 RDW 14.4 % (11.5-20.0) 03/28/17 05:16 Plt Count 330 Th/cmm (150-400) 03/28/17 05:16 MPV 7.2 fl 03/28/17 05:16 Neutrophils % 52.6 % (40.0-80.0) 03/28/17 05:16 Lymphocytes % 34.2 % (20.0-50.0) 03/28/17 05:16 Monocytes % 7.4 % (2.0-10.0) 03/28/17 05:16 Eosinophils % 5.0 % (0.0-5.0) 03/28/17 05:16 Basophils % 0.8 % (0.0-2.0) 03/28/17 05:16 PT 10.1 SECONDS (9.5-11.5) 03/28/17 05:16 INR 0.97 (0.5-1.4) 03/28/17 05:16 PTT (Actin FS) 26.2 SECONDS (26.0-38.0) 03/28/17 05:16 Sodium 134 mEq/L (136-145) L 03/28/17 05:16 Potassium 4.5 mEq/L (3.5-5.1) 03/28/17 05:16 Chloride 101 mEq/L (98-107) 03/28/17 05:16 Carbon Dioxide 25.6 mEq/L (21.0-31.0) 03/28/17 05:16 Anion Gap 11.9 (7.0-16.0) 03/28/17 05:16 BUN 66 mg/dL (7-25) H 03/28/17 05:16 Creatinine 5.5 mg/dL (0.6-1.2) H* 03/28/17 05:16 Est GFR ( Amer) 10.2 ml/min (>90) 03/28/17 05:16 Est GFR (Non-Af Amer) 8.4 ml/min 03/28/17 05:16 BUN/Creatinine Ratio 12.0 03/28/17 05:16 Glucose 92 mg/dL (70-105) 03/28/17 05:16 POC Glucose 170 MG/DL (70 - 105) H 03/29/17 20:26 Hemoglobin A1c % 8.5 % (4.0-6.0) H 03/26/17 18:58 Whole Bld Lactic Acid 1.33 mmol/L (0.60-1.99) 03/26/17 18:58 Calcium 8.0 mg/dL (8.6-10.3) L 03/28/17 05:16 Phosphorus 4.5 mg/dL (2.5-5.0) 03/28/17 05:16 Iron 95 ug/dL (27-159) 03/28/17 05:16 TIBC 198 ug/dL (250-450) L 03/28/17 05:16 Iron Saturation 48 % (15-55) 03/28/17 05:16 Unsaturated IBC 103 ug/dL (131-425) L 03/28/17 05:16 Ferritin 910 ng/mL (15-150) H 03/28/17 05:16 Total Bilirubin 0.3 mg/dL (0.3-1.0) 03/28/17 05:16 AST 10 U/L (13-39) L 03/28/17 05:16 ALT 10 U/L (7-52) 03/28/17 05:16 Alkaline Phosphatase 59 U/L (34-104) 03/28/17 05:16 C-Reactive Protein 4.2 mg/dL (0.0-0.9) H 03/26/17 18:58 B-Natriuretic Peptide 173.0 pg/mL (5.0-100.0) H 03/26/17 18:58 Total Protein 6.0 gm/dL (6.0-8.3) 03/28/17 05:16 Albumin 3.0 gm/dL (3.7-5.3) L 03/28/17 05:16 Globulin 3.0 gm/dL 03/28/17 05:16 Albumin/Globulin Ratio 1.0 (1.0-1.8) 03/28/17 05:16 Triglycerides 295 mg/dL (<150) H 03/26/17 18:58 Cholesterol 153 mg/dL (<200) 03/26/17 18:58 LDL Cholesterol Direct 92 mg/dL (75-193) 03/26/17 18:58 HDL Cholesterol 36 mg/dL (23-92) 03/26/17 18:58 TSH 0.95 uIU/ml (0.34-5.60) 03/26/17 18:58 Random Vancomycin 20.1 ug/mL (5.0-40.0) 03/28/17 05:16 - Physical Exam Vitals and I&O: Vital Signs Temp 98.5 F 03/29/17 15:53 Pulse 63 03/29/17 16:08 Resp 19 03/29/17 15:53 BP 109/64 03/29/17 16:08 Pulse Ox 100 03/29/17 15:53 Intake & Output 03/29/17 03/29/17 03/30/17 06:59 18:59 06:59 Intake Total 50 650 Balance 50 650 Weight (lbs) 198 lb 3.2 oz 198 lb 3.2 oz Intake: Oral 50 650 Other: # Voids 3 4 # Bowel Movements 1 Active Medications: Current Medications Amlodipine Besylate (Norvasc) 5 mg PO DAILY [facility] Stop: 05/26/17 11:29 Last Admin: 03/29/17 09:28 Dose: 5 mg Bupropion HCl (Wellbutrin Sr) 150 mg PO DAILY [facility] PRN Reason: Protocol Stop: 05/27/17 08:59 Last Admin: 03/29/17 09:29 Dose: 150 mg Buspirone HCl (Buspar) 15 mg PO DAILY [facility] Stop: 05/27/17 08:59 Last Admin: 03/29/17 09:27 Dose: 15 mg Carvedilol (Coreg) 12.5 mg PO BID [place] Stop: 05/26/17 16:59 Last Admin: 03/29/17 16:08 Dose: 12.5 mg Epoetin Jacek (Epogen) 4,000 units IVP MoWeFr [place] Stop: 05/27/17 17:59 Last Admin: 03/28/17 21:53 Dose: 4,000 units Cefepime HCl 1 gm/ Sodium (Chloride) 50 mls @ 100 mls/hr IV Q12HR [place] Stop: 05/28/17 20:59 Last Admin: 03/29/17 20:59 Dose: 100 mls/hr Insulin Aspart (Novolog) 0 units SUBQ Q6HR [place] PRN Reason: Protocol Stop: 05/26/17 00:00 Last Admin: 03/29/17 17:07 Dose: 2 units Insulin Human Isoph/Insulin Regular (Novolin 70/30) 20 units SUBQ HS [place] PRN Reason: Protocol Stop: 05/25/17 21:29 Last Admin: 03/29/17 20:59 Dose: 20 units Insulin Human Isoph/Insulin Regular (Novolin 70/30) 30 units SUBQ QDAC [place] PRN Reason: Protocol Stop: 05/26/17 07:29 Last Admin: 03/29/17 06:33 Dose: Not Given Lactulose (Cephulac) 20 gm PO BID [facility] Stop: 05/26/17 13:44 Last Admin: 03/29/17 16:08 Dose: 20 gm Lisinopril (Zestril) 10 mg PO DAILY [place] Stop: 05/27/17 08:59 Last Admin: 03/29/17 09:28 Dose: 10 mg Sevelamer Carbonate (Renvela) 800 mg PO TIDWM [place] Stop: 05/26/17 16:59 Last Admin: 03/29/17 16:08 Dose: 800 mg General: weak, alert HEENT: NC/AT, PERRLA Neck: Supple Lungs: CTAB Extremities: excoriation Neurological: no change Internal Medicine Assmt/Plan - Assessment Assessment: 1. Left arm cellulitis. 2. Left arm wound. - Plan Plan: continue ivabx as per id continue current orders Nutritional Asmnt/Malnutr-PDOC - Dietary Evaluation Malnutrition Findings (Please click <Entered> for more info): Nutritional Asmnt/Malnutrition Start: 03/28/17 15: 11 Text: Status: Complete Freq: Document 03/28/17 15:11 LUIS ALBERTOMAGUE (Rec: 03/28/17 15:37 SANTIAGO [email or web address]) Nutritional Asmnt/Malnutrition Patient General Information Nutritional Screening High Risk Consult Diagnosis left arm cellulitis Pertinent Medical Hx/Surgical Hx ESRD on HD, dementia Subjective Information Consult received for DM. Pt seen sitting on bed having lunch at time of visit. Pt reported good appetite, no food preference. Per EMR, PO intake 100% of breakfast on . Per notes, pt has dialysis today. Current Diet Order/ Nutrition Support Regular Pertinent Medications novolog, novolin, cephulac, vancomycin, renvela Pertinent Labs 03/28 Na 134, K 4.5, Cl 101, BUN 66, Cr 5.5, Glucose 92, POC 93-136, Ca 8.0, Phos 4.5 Nutritional Hx/Data Height 5 ft 2 in Height (Calculated Centimeters) 157.5 Current Weight (lbs) 198 lb 6.4 oz Weight (Calculated Kilograms) 90.0 Weight (Calculated Grams) 17332.7 [place] Body Weight 110 % [place] Body Weight 180 Body Mass Index (BMI) 36.3 Weight Status Obese GI Symptoms GI Symptoms None Last BM none Difficult in: None Skin Integrity/Comment: right upper arm A/V shut area wound Estimated Nutritional Goals BEE in Kcals: Adj wt of IBW Calories/Kcals/Kg 25-30 Kcals Calculated 8122-8885 Protein: Adj wt of IBW Protein g/k-1.2 Protein Calculated 60-72 Fluid: ml 1500-1800ml (1ml/kcal) or per MD Nutritional Problem 2. Problem Problem increased nutrition needs ( protein) Etiology increased protein loss and wound Signs/Symptoms: pt on HD and left arm cellulitis 1. Problem Problem altered nutrition related lab values Etiology hx of ESRD Signs/Symptoms: BUN 66, Cr 5.5 Malnutrition Alert Protein-Calorie Malnutrition N/A Is there a minimum of two criteria No selected? Query Text:Check all the applicable criteria. A minimum of two criteria are recommended for diagnosis of either severe or non-severe malnutrition. Intervention/Recommendation Comments 1. Continue with current diet as ordered. Encouraged protein intake. 2. Monitor PO intake, wt, labs and skin integrity 3. F/U as moderate risk in 3-5 days, 2/-2/3 Expected Outcomes/Goals Expected Outcomes/Goals 1. PO intake to meet at least 75% of nutritional needs. 2. Wt stability, skin to remain intact, labs to improve
[2017-03-30] MEDS: INSULIN ASPART, RECOMBINANT 100 UNITS/ML SUBQ SCH ×4 (00:14→17:19)
[2017-03-30] MEDS: INSULIN 70/30 100 UNITS/ML SUBQ SCH ×2 (06:34→22:20)
[2017-03-30 07:57] LABS: ALBUMIN 3.4 gm/dL (3.7-5.3); ANION GAP 14.4 (7.0-16.0); BILIRUBIN,TOTAL 0.3 mg/dL (0.3-1.0); CALCIUM SERUM 8.4 mg/dL (8.6-10.3); CARBON DIOXIDE 21.2 mEq/L (21.0-31.0); GFR AFRICAN-AMERICAN 14.3 ml/min (>90); GFR NON AFRICAN-AMERICAN 11.8 ml/min; POTASSIUM SERUM 4.6 mEq/L (3.5-5.1); TOTAL PROTEIN,SERUM 6.7 gm/dL (6.0-8.3)
[2017-03-30 08:04] LABS: % BASOPHILS 0.1 % (0.0-2.0); % EOSINOPHILS 5.3 % (0.0-5.0); % LYMPHOCYTES 20.4 % (20.0-50.0); % MONOCYTES 5.3 % (2.0-10.0); % NEUTROPHILS 68.9 % (40.0-80.0); CREATININE - SERUM 4.1 mg/dL (0.6-1.2); EOSINOPHILE ABSOLUTE 0.5 Th/cmm (0.1-0.4); HEMOGLOBIN 10.5 gm/dL (12-16); MEAN CELL VOLUME 96.7 fl (81-100); MEAN CORPUSCULAR HEMOGLOBIN 32.3 pg (27.0-31.0); MEAN CORPUSCULAR HGB CONC 33.5 pg (28.0-36.0); MEAN PLATELET VOLUME 7.5 fl; MONOCYTE ABSOLUTE 0.5 Th/cmm (0.3-1.0); NEUTROPHILE ABSOLUTE 6.8 Th/cmm (1.8-8.0); PLATELET COUNT 332 Th/cmm (150-400); RED BLOOD COUNT 3.25 Mil/cmm (3.80-5.10); RED CELL DISTRIBUTION WIDTH 14.1 % (11.5-20.0); WHITE BLOOD COUNT 9.8 Th/cmm (4.8-10.8)
--- NOTE | 2017-03-30 08:04 | Diagnostic Imaging Report ---
Radionuclide indium white blood cell scan (whole-body) HISTORY: Infection left arm 484 uCi indium 111 labeled white blood cells used in the exam. No abnormal foci or regions of activity seen about the cranial, thoracic, abdominal regions. No abnormal low side of increased activity noted about the left arm. Normal distribution of activity seen within the skeletal system, liver, spleen. IMPRESSION: Negative examination
[2017-03-30 08:06] LABS: HEMATOCRIT 31.4 % (41.0-60)
--- NOTE | 2017-03-30 08:16 | General Progress Note ---
Subjective - Review of Systems Service Date: 03/30/17 Events since last encounter: blood culture neg. 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 Objective - Results Result Diagrams: 03/30/17 05:20 03/30/17 05:20 Recent Labs: Laboratory Last Values WBC 9.8 Th/cmm (4.8-10.8) 03/30/17 05:20 RBC 3.25 Mil/cmm (3.80-5.10) L 03/30/17 05:20 Hgb 10.5 gm/dL (12-16) L 03/30/17 05:20 Hct 31.4 % (41.0-60) L D 03/30/17 05:20 MCV 96.7 fl (81-100) 03/30/17 05:20 MCH 32.3 pg (27.0-31.0) H 03/30/17 05:20 MCHC Differential 33.5 pg (28.0-36.0) 03/30/17 05:20 RDW 14.1 % (11.5-20.0) 03/30/17 05:20 Plt Count 332 Th/cmm (150-400) 03/30/17 05:20 MPV 7.5 fl 03/30/17 05:20 Neutrophils % 68.9 % (40.0-80.0) 03/30/17 05:20 Lymphocytes % 20.4 % (20.0-50.0) 03/30/17 05:20 Monocytes % 5.3 % (2.0-10.0) 03/30/17 05:20 Eosinophils % 5.3 % (0.0-5.0) H 03/30/17 05:20 Basophils % 0.1 % (0.0-2.0) 03/30/17 05:20 PT 10.1 SECONDS (9.5-11.5) 03/28/17 05:16 INR 0.97 (0.5-1.4) 03/28/17 05:16 PTT (Actin FS) 26.2 SECONDS (26.0-38.0) 03/28/17 05:16 Sodium 132 mEq/L (136-145) L 03/30/17 05:20 Potassium 4.6 mEq/L (3.5-5.1) 03/30/17 05:20 Chloride 101 mEq/L (98-107) 03/30/17 05:20 Carbon Dioxide 21.2 mEq/L (21.0-31.0) 03/30/17 05:20 Anion Gap 14.4 (7.0-16.0) 03/30/17 05:20 BUN 45 mg/dL (7-25) H 03/30/17 05:20 Creatinine 4.1 mg/dL (0.6-1.2) H* 03/30/17 05:20 Est GFR ( Amer) 14.3 ml/min (>90) 03/30/17 05:20 Est GFR (Non-Af Amer) 11.8 ml/min 03/30/17 05:20 BUN/Creatinine Ratio 11.0 03/30/17 05:20 Glucose 113 mg/dL (70-105) H 03/30/17 05:20 POC Glucose 109 MG/DL (70 - 105) H 03/30/17 05:37 Hemoglobin A1c % 8.5 % (4.0-6.0) H 03/26/17 18:58 Whole Bld Lactic Acid 1.33 mmol/L (0.60-1.99) 03/26/17 18:58 Calcium 8.4 mg/dL (8.6-10.3) L 03/30/17 05:20 Phosphorus 4.5 mg/dL (2.5-5.0) 03/28/17 05:16 Iron 95 ug/dL (27-159) 03/28/17 05:16 TIBC 198 ug/dL (250-450) L 03/28/17 05:16 Iron Saturation 48 % (15-55) 03/28/17 05:16 Unsaturated IBC 103 ug/dL (131-425) L 03/28/17 05:16 Ferritin 910 ng/mL (15-150) H 03/28/17 05:16 Total Bilirubin 0.3 mg/dL (0.3-1.0) 03/30/17 05:20 AST 12 U/L (13-39) L 03/30/17 05:20 ALT 11 U/L (7-52) 03/30/17 05:20 Alkaline Phosphatase 61 U/L (34-104) 03/30/17 05:20 C-Reactive Protein 4.2 mg/dL (0.0-0.9) H 03/26/17 18:58 B-Natriuretic Peptide 173.0 pg/mL (5.0-100.0) H 03/26/17 18:58 Total Protein 6.7 gm/dL (6.0-8.3) 03/30/17 05:20 Albumin 3.4 gm/dL (3.7-5.3) L 03/30/17 05:20 Globulin 3.3 gm/dL 03/30/17 05:20 Albumin/Globulin Ratio 1.0 (1.0-1.8) 03/30/17 05:20 Triglycerides 295 mg/dL (<150) H 03/26/17 18:58 Cholesterol 153 mg/dL (<200) 03/26/17 18:58 LDL Cholesterol Direct 92 mg/dL (75-193) 03/26/17 18:58 HDL Cholesterol 36 mg/dL (23-92) 03/26/17 18:58 TSH 0.95 uIU/ml (0.34-5.60) 03/26/17 18:58 Random Vancomycin 19.9 ug/mL (5.0-40.0) 03/30/17 06:00 - Physical Exam Vitals and I&O: Vital Signs Temp 97.7 F 03/30/17 04:58 Pulse 69 03/30/17 04:58 Resp 18 03/30/17 04:58 BP 139/50 03/30/17 04:58 Pulse Ox 100 03/30/17 04:58 Intake & Output 03/29/17 03/30/17 03/30/17 18:59 06:59 18:59 Intake Total 650 Balance 650 Weight (lbs) 89.902 kg 89.675 kg Intake: Oral 650 Other: # Voids 4 3 # Bowel Movements 1 Active Medications: Current Medications Amlodipine Besylate (Norvasc) 5 mg PO DAILY [facility] Stop: 05/26/17 11:29 Last Admin: 03/29/17 09:28 Dose: 5 mg Bupropion HCl (Wellbutrin Sr) 150 mg PO DAILY [facility] PRN Reason: Protocol Stop: 05/27/17 08:59 Last Admin: 03/29/17 09:29 Dose: 150 mg Buspirone HCl (Buspar) 15 mg PO DAILY [facility] Stop: 05/27/17 08:59 Last Admin: 03/29/17 09:27 Dose: 15 mg Carvedilol (Coreg) 12.5 mg PO BID [place] Stop: 05/26/17 16:59 Last Admin: 03/29/17 16:08 Dose: 12.5 mg Epoetin Jacek (Epogen) 4,000 units IVP MoWeFr [place] Stop: 05/27/17 17:59 Last Admin: 03/28/17 21:53 Dose: 4,000 units Cefepime HCl 1 gm/ Sodium (Chloride) 50 mls @ 100 mls/hr IV Q12HR [place] Stop: 05/28/17 20:59 Last Admin: 03/29/17 20:59 Dose: 100 mls/hr Insulin Aspart (Novolog) 0 units SUBQ Q6HR [place] PRN Reason: Protocol Stop: 05/26/17 00:00 Last Admin: 03/30/17 06:06 Dose: Not Given Insulin Human Isoph/Insulin Regular (Novolin 70/30) 20 units SUBQ HS [place] PRN Reason: Protocol Stop: 05/25/17 21:29 Last Admin: 03/29/17 20:59 Dose: 20 units Insulin Human Isoph/Insulin Regular (Novolin 70/30) 30 units SUBQ QDAC [place] PRN Reason: Protocol Stop: 05/26/17 07:29 Last Admin: 03/30/17 06:34 Dose: Not Given Lactulose (Cephulac) 20 gm PO BID [facility] Stop: 05/26/17 13:44 Last Admin: 03/29/17 16:08 Dose: 20 gm Lisinopril (Zestril) 10 mg PO DAILY [place] Stop: 05/27/17 08:59 Last Admin: 03/29/17 09:28 Dose: 10 mg Sevelamer Carbonate (Renvela) 800 mg PO TIDWM [facility] Stop: 05/26/17 16:59 Last Admin: 03/29/17 16:08 Dose: 800 mg Nutritional Asmnt/Malnutr-PDOC - Dietary Evaluation Malnutrition Findings (Please click <Entered> for more info): Nutritional Asmnt/Malnutrition Start: 03/28/17 15: 11 Text: Status: Complete Freq: Document 03/28/17 15:11 LCHENG (Rec: 03/28/17 15:37 LCHENG [email or web address]) Nutritional Asmnt/Malnutrition Patient General Information Nutritional Screening High Risk Consult Diagnosis left arm cellulitis Pertinent Medical Hx/Surgical Hx ESRD on HD, dementia Subjective Information Consult received for DM. Pt seen sitting on bed having lunch at time of visit. Pt reported good appetite, no food preference. Per EMR, PO intake 100% of breakfast on . Per notes, pt has dialysis today. Current Diet Order/ Nutrition Support Regular Pertinent Medications novolog, novolin, cephulac, vancomycin, renvela Pertinent Labs 03/28 Na 134, K 4.5, Cl 101, BUN 66, Cr 5.5, Glucose 92, POC 93-136, Ca 8.0, Phos 4.5 Nutritional Hx/Data Height 1.57 m Height (Calculated Centimeters) 157.5 Current Weight (lbs) 89.993 kg Weight (Calculated Kilograms) 90.0 Weight (Calculated Grams) 48283.7 [place] Body Weight 110 % [place] Body Weight 180 Body Mass Index (BMI) 36.3 Weight Status Obese GI Symptoms GI Symptoms None Last BM none Difficult in: None Skin Integrity/Comment: right upper arm A/V shut area wound Estimated Nutritional Goals BEE in Kcals: Adj wt of IBW Calories/Kcals/Kg 25-30 Kcals Calculated 6793-5924 Protein: Adj wt of IBW Protein g/k-1.2 Protein Calculated 60-72 Fluid: ml 1500-1800ml (1ml/kcal) or per MD Nutritional Problem 2. Problem Problem increased nutrition needs ( protein) Etiology increased protein loss and wound Signs/Symptoms: pt on HD and left arm cellulitis 1. Problem Problem altered nutrition related lab values Etiology hx of ESRD Signs/Symptoms: BUN 66, Cr 5.5 Malnutrition Alert Protein-Calorie Malnutrition N/A Is there a minimum of two criteria No selected? Query Text:Check all the applicable criteria. A minimum of two criteria are recommended for diagnosis of either severe or non-severe malnutrition. Intervention/Recommendation Comments 1. Continue with current diet as ordered. Encouraged protein intake. 2. Monitor PO intake, wt, labs and skin integrity 3. F/U as moderate risk in 3-5 days, 2/1-2/3 Expected Outcomes/Goals Expected Outcomes/Goals 1. PO intake to meet at least 75% of nutritional needs. 2. Wt stability, skin to remain intact, labs to improve
[2017-03-30] MEDS: Lactulose 10 Gm/15 mL 30mL UDC PO SCH ×2 (08:40→16:52)
[2017-03-30] MEDS: Cefepime 1 GM in Sodium Chloride 0.9% 50 ML IV SCH (08:44)
--- NOTE | 2017-03-30 09:57 | General Progress Note ---
Subjective - Review of Systems Events since last encounter: in no distress no fever Objective - Results Result Diagrams: 03/30/17 05:20 03/30/17 05:20 Recent Labs: Laboratory Last Values WBC 9.8 Th/cmm (4.8-10.8) 03/30/17 05:20 RBC 3.25 Mil/cmm (3.80-5.10) L 03/30/17 05:20 Hgb 10.5 gm/dL (12-16) L 03/30/17 05:20 Hct 31.4 % (41.0-60) L D 03/30/17 05:20 MCV 96.7 fl (81-100) 03/30/17 05:20 MCH 32.3 pg (27.0-31.0) H 03/30/17 05:20 MCHC Differential 33.5 pg (28.0-36.0) 03/30/17 05:20 RDW 14.1 % (11.5-20.0) 03/30/17 05:20 Plt Count 332 Th/cmm (150-400) 03/30/17 05:20 MPV 7.5 fl 03/30/17 05:20 Neutrophils % 68.9 % (40.0-80.0) 03/30/17 05:20 Lymphocytes % 20.4 % (20.0-50.0) 03/30/17 05:20 Monocytes % 5.3 % (2.0-10.0) 03/30/17 05:20 Eosinophils % 5.3 % (0.0-5.0) H 03/30/17 05:20 Basophils % 0.1 % (0.0-2.0) 03/30/17 05:20 PT 10.1 SECONDS (9.5-11.5) 03/28/17 05:16 INR 0.97 (0.5-1.4) 03/28/17 05:16 PTT (Actin FS) 26.2 SECONDS (26.0-38.0) 03/28/17 05:16 Sodium 132 mEq/L (136-145) L 03/30/17 05:20 Potassium 4.6 mEq/L (3.5-5.1) 03/30/17 05:20 Chloride 101 mEq/L (98-107) 03/30/17 05:20 Carbon Dioxide 21.2 mEq/L (21.0-31.0) 03/30/17 05:20 Anion Gap 14.4 (7.0-16.0) 03/30/17 05:20 BUN 45 mg/dL (7-25) H 03/30/17 05:20 Creatinine 4.1 mg/dL (0.6-1.2) H* 03/30/17 05:20 Est GFR ( Amer) 14.3 ml/min (>90) 03/30/17 05:20 Est GFR (Non-Af Amer) 11.8 ml/min 03/30/17 05:20 BUN/Creatinine Ratio 11.0 03/30/17 05:20 Glucose 113 mg/dL (70-105) H 03/30/17 05:20 POC Glucose 109 MG/DL (70 - 105) H 03/30/17 05:37 Hemoglobin A1c % 8.5 % (4.0-6.0) H 03/26/17 18:58 Whole Bld Lactic Acid 1.33 mmol/L (0.60-1.99) 03/26/17 18:58 Calcium 8.4 mg/dL (8.6-10.3) L 03/30/17 05:20 Phosphorus 4.5 mg/dL (2.5-5.0) 03/28/17 05:16 Iron 95 ug/dL (27-159) 03/28/17 05:16 TIBC 198 ug/dL (250-450) L 03/28/17 05:16 Iron Saturation 48 % (15-55) 03/28/17 05:16 Unsaturated IBC 103 ug/dL (131-425) L 03/28/17 05:16 Ferritin 910 ng/mL (15-150) H 03/28/17 05:16 Total Bilirubin 0.3 mg/dL (0.3-1.0) 03/30/17 05:20 AST 12 U/L (13-39) L 03/30/17 05:20 ALT 11 U/L (7-52) 03/30/17 05:20 Alkaline Phosphatase 61 U/L (34-104) 03/30/17 05:20 C-Reactive Protein 4.2 mg/dL (0.0-0.9) H 03/26/17 18:58 B-Natriuretic Peptide 173.0 pg/mL (5.0-100.0) H 03/26/17 18:58 Total Protein 6.7 gm/dL (6.0-8.3) 03/30/17 05:20 Albumin 3.4 gm/dL (3.7-5.3) L 03/30/17 05:20 Globulin 3.3 gm/dL 03/30/17 05:20 Albumin/Globulin Ratio 1.0 (1.0-1.8) 03/30/17 05:20 Triglycerides 295 mg/dL (<150) H 03/26/17 18:58 Cholesterol 153 mg/dL (<200) 03/26/17 18:58 LDL Cholesterol Direct 92 mg/dL (75-193) 03/26/17 18:58 HDL Cholesterol 36 mg/dL (23-92) 03/26/17 18:58 TSH 0.95 uIU/ml (0.34-5.60) 03/26/17 18:58 Random Vancomycin 19.9 ug/mL (5.0-40.0) 03/30/17 06:00 - Physical Exam Vitals and I&O: Vital Signs Temp 97.7 F 03/30/17 04:58 Pulse 69 03/30/17 04:58 Resp 18 03/30/17 04:58 BP 139/50 03/30/17 04:58 Pulse Ox 100 03/30/17 04:58 Intake & Output 03/29/17 03/30/17 03/30/17 18:59 06:59 18:59 Intake Total 650 50 Balance 650 50 Weight (lbs) 89.902 kg 89.675 kg Intake: Intake, IV Amount 50 Cefepime 1 gm In Sodium 50 Chloride 0.9% 50 ml @ 100 mls/hr IV Q12HR [facility] Rx#: [id number] Oral 650 Other: # Voids 4 3 # Bowel Movements 1 Active Medications: Current Medications Amlodipine Besylate (Norvasc) 5 mg PO DAILY [facility] Stop: 05/26/17 11:29 Last Admin: 03/30/17 08:37 Dose: Not Given Bupropion HCl (Wellbutrin Sr) 150 mg PO DAILY [facility] PRN Reason: Protocol Stop: 05/27/17 08:59 Last Admin: 03/30/17 08:45 Dose: 150 mg Buspirone HCl (Buspar) 15 mg PO DAILY [facility] Stop: 05/27/17 08:59 Last Admin: 03/30/17 08:44 Dose: 15 mg Carvedilol (Coreg) 12.5 mg PO BID [facility] Stop: 05/26/17 16:59 Last Admin: 03/30/17 08:38 Dose: Not Given Epoetin Jacek (Epogen) 4,000 units IVP MoWeFr [facility] Stop: 05/27/17 17:59 Last Admin: 03/28/17 21:53 Dose: 4,000 units Cefepime HCl 1 gm/ Sodium (Chloride) 50 mls @ 100 mls/hr IV Q12HR [facility] Stop: 05/28/17 20:59 Last Admin: 03/30/17 08:44 Dose: 100 mls/hr Insulin Aspart (Novolog) 0 units SUBQ Q6HR [place] PRN Reason: Protocol Stop: 05/26/17 00:00 Last Admin: 03/30/17 06:06 Dose: Not Given Insulin Human Isoph/Insulin Regular (Novolin 70/30) 20 units SUBQ HS [place] PRN Reason: Protocol Stop: 05/25/17 21:29 Last Admin: 03/29/17 20:59 Dose: 20 units Insulin Human Isoph/Insulin Regular (Novolin 70/30) 30 units SUBQ QDAC [place] PRN Reason: Protocol Stop: 05/26/17 07:29 Last Admin: 03/30/17 06:34 Dose: Not Given Lactulose (Cephulac) 20 gm PO BID [facility] Stop: 05/26/17 13:44 Last Admin: 03/30/17 08:40 Dose: Not Given Lisinopril (Zestril) 10 mg PO DAILY [facility] Stop: 05/27/17 08:59 Last Admin: 03/30/17 08:37 Dose: Not Given Sevelamer Carbonate (Renvela) 800 mg PO TIDWM [facility] Stop: 05/26/17 16:59 Last Admin: 03/30/17 08:44 Dose: 800 mg Nutritional Asmnt/Malnutr-PDOC - Dietary Evaluation Malnutrition Findings (Please click <Entered> for more info): Nutritional Asmnt/Malnutrition Start: 03/28/17 15: 11 Text: Status: Complete Freq: Document 03/28/17 15:11 LCHENG (Rec: 03/28/17 15:37 [facility] [email or web address]) Nutritional Asmnt/Malnutrition Patient General Information Nutritional Screening High Risk Consult Diagnosis left arm cellulitis Pertinent Medical Hx/Surgical Hx ESRD on HD, dementia Subjective Information Consult received for DM. Pt seen sitting on bed having lunch at time of visit. Pt reported good appetite, no food preference. Per EMR, PO intake 100% of breakfast on . Per notes, pt has dialysis today. Current Diet Order/ Nutrition Support Regular Pertinent Medications novolog, novolin, cephulac, vancomycin, renvela Pertinent Labs 03/28 Na 134, K 4.5, Cl 101, BUN 66, Cr 5.5, Glucose 92, POC 93-136, Ca 8.0, Phos 4.5 Nutritional Hx/Data Height 1.57 m Height (Calculated Centimeters) 157.5 Current Weight (lbs) 89.993 kg Weight (Calculated Kilograms) 90.0 Weight (Calculated Grams) 46563.7 [place] Body Weight 110 % [place] Body Weight 180 Body Mass Index (BMI) 36.3 Weight Status Obese GI Symptoms GI Symptoms None Last BM none Difficult in: None Skin Integrity/Comment: right upper arm A/V shut area wound Estimated Nutritional Goals BEE in Kcals: Adj wt of IBW Calories/Kcals/Kg 25-30 Kcals Calculated 8675-0133 Protein: Adj wt of IBW Protein g/k-1.2 Protein Calculated 60-72 Fluid: ml 1500-1800ml (1ml/kcal) or per MD Nutritional Problem 2. Problem Problem increased nutrition needs ( protein) Etiology increased protein loss and wound Signs/Symptoms: pt on HD and left arm cellulitis 1. Problem Problem altered nutrition related lab values Etiology hx of ESRD Signs/Symptoms: BUN 66, Cr 5.5 Malnutrition Alert Protein-Calorie Malnutrition N/A Is there a minimum of two criteria No selected? Query Text:Check all the applicable criteria. A minimum of two criteria are recommended for diagnosis of either severe or non-severe malnutrition. Intervention/Recommendation Comments 1. Continue with current diet as ordered. Encouraged protein intake. 2. Monitor PO intake, wt, labs and skin integrity 3. F/U as moderate risk in 3-5 days, 2/1-2/3 Expected Outcomes/Goals Expected Outcomes/Goals 1. PO intake to meet at least 75% of nutritional needs. 2. Wt stability, skin to remain intact, labs to improve
[2017-03-30] MEDS: Epoetin Alfa 20000 Units/mL Vial IVP SCH ×2 (11:36→17:18)
[2017-03-30] MEDS ORDERED: Heparin Sod 1,000 Units/mL 10ml HD ONE (11:39)
[2017-03-30] MEDS ORDERED: Heparin Sodium 1,000 Units/mL Vial HD ONE (12:15)
--- NOTE | 2017-03-30 14:09 | Progress Notes ---
DATE: 03/29/2017 HISTORY OF PRESENT ILLNESS: A 61-year-old female with previous history of left arm cellulitis, end-stage renal disease on hemodialysis, currently undergoing a procedure involving radiation, which is unfortunately taking more than half hour. I will need to follow up at a later time. However, I did review the notes of Dr. Cerda on standing diagnosis of major depression and patient is on Wellbutrin and BuSpar. We will follow up at a later time when the patient is not undergoing a radiation involved procedure. [facility]# [id number]
[2017-03-30] MEDS ORDERED: Probiotic Screen MC PRN (14:24)
--- NOTE | 2017-03-30 16:07 | Progress Notes ---
DATE: 03/30/2017 PSYCHIATRIC PROGRESS NOTE SUBJECTIVE: Chart reviewed and the patient interviewed. Also discussed the patient's condition with the staff and reviewed records and labs. The patient continued to be anxious and is still in a depressed mood. "What are we doing here," asking about her dialysis and the patient is supposed to have a repair for her shunt that she is enquiring about. The patient said that she is feeling less depressed, less anxious with BuSpar and Wellbutrin. She also denies any thoughts of harming herself or others. ASSESSMENT: The patient is stable and not as depressed. TREATMENT PLAN: Continue Wellbutrin and BuSpar, same dose. Continue supportive therapy and follow. [facility]# [id number]
[2017-03-31] MEDS: INSULIN ASPART, RECOMBINANT 100 UNITS/ML SUBQ SCH ×4 (00:23→18:15)
[2017-03-31] MEDS: INSULIN 70/30 100 UNITS/ML SUBQ SCH ×2 (07:57→21:27)
--- NOTE | 2017-03-31 08:27 | General Progress Note ---
Subjective - Review of Systems Events since last encounter: awake in no acute distress Objective - Results Result Diagrams: 03/30/17 05:20 03/30/17 05:20 Recent Labs: Laboratory Last Values WBC 9.8 Th/cmm (4.8-10.8) 03/30/17 05:20 RBC 3.25 Mil/cmm (3.80-5.10) L 03/30/17 05:20 Hgb 10.5 gm/dL (12-16) L 03/30/17 05:20 Hct 31.4 % (41.0-60) L D 03/30/17 05:20 MCV 96.7 fl (81-100) 03/30/17 05:20 MCH 32.3 pg (27.0-31.0) H 03/30/17 05:20 MCHC Differential 33.5 pg (28.0-36.0) 03/30/17 05:20 RDW 14.1 % (11.5-20.0) 03/30/17 05:20 Plt Count 332 Th/cmm (150-400) 03/30/17 05:20 MPV 7.5 fl 03/30/17 05:20 Neutrophils % 68.9 % (40.0-80.0) 03/30/17 05:20 Lymphocytes % 20.4 % (20.0-50.0) 03/30/17 05:20 Monocytes % 5.3 % (2.0-10.0) 03/30/17 05:20 Eosinophils % 5.3 % (0.0-5.0) H 03/30/17 05:20 Basophils % 0.1 % (0.0-2.0) 03/30/17 05:20 PT 10.1 SECONDS (9.5-11.5) 03/28/17 05:16 INR 0.97 (0.5-1.4) 03/28/17 05:16 PTT (Actin FS) 26.2 SECONDS (26.0-38.0) 03/28/17 05:16 Sodium 132 mEq/L (136-145) L 03/30/17 05:20 Potassium 4.6 mEq/L (3.5-5.1) 03/30/17 05:20 Chloride 101 mEq/L (98-107) 03/30/17 05:20 Carbon Dioxide 21.2 mEq/L (21.0-31.0) 03/30/17 05:20 Anion Gap 14.4 (7.0-16.0) 03/30/17 05:20 BUN 45 mg/dL (7-25) H 03/30/17 05:20 Creatinine 4.1 mg/dL (0.6-1.2) H* 03/30/17 05:20 Est GFR ( Amer) 14.3 ml/min (>90) 03/30/17 05:20 Est GFR (Non-Af Amer) 11.8 ml/min 03/30/17 05:20 BUN/Creatinine Ratio 11.0 03/30/17 05:20 Glucose 113 mg/dL (70-105) H 03/30/17 05:20 POC Glucose 127 MG/DL (70 - 105) H 03/31/17 00:19 Hemoglobin A1c % 8.5 % (4.0-6.0) H 03/26/17 18:58 Whole Bld Lactic Acid 1.33 mmol/L (0.60-1.99) 03/26/17 18:58 Calcium 8.4 mg/dL (8.6-10.3) L 03/30/17 05:20 Phosphorus 4.5 mg/dL (2.5-5.0) 03/28/17 05:16 Iron 95 ug/dL (27-159) 03/28/17 05:16 TIBC 198 ug/dL (250-450) L 03/28/17 05:16 Iron Saturation 48 % (15-55) 03/28/17 05:16 Unsaturated IBC 103 ug/dL (131-425) L 03/28/17 05:16 Ferritin 910 ng/mL (15-150) H 03/28/17 05:16 Total Bilirubin 0.3 mg/dL (0.3-1.0) 03/30/17 05:20 AST 12 U/L (13-39) L 03/30/17 05:20 ALT 11 U/L (7-52) 03/30/17 05:20 Alkaline Phosphatase 61 U/L (34-104) 03/30/17 05:20 C-Reactive Protein 4.2 mg/dL (0.0-0.9) H 03/26/17 18:58 B-Natriuretic Peptide 173.0 pg/mL (5.0-100.0) H 03/26/17 18:58 Total Protein 6.7 gm/dL (6.0-8.3) 03/30/17 05:20 Albumin 3.4 gm/dL (3.7-5.3) L 03/30/17 05:20 Globulin 3.3 gm/dL 03/30/17 05:20 Albumin/Globulin Ratio 1.0 (1.0-1.8) 03/30/17 05:20 Triglycerides 295 mg/dL (<150) H 03/26/17 18:58 Cholesterol 153 mg/dL (<200) 03/26/17 18:58 LDL Cholesterol Direct 92 mg/dL (75-193) 03/26/17 18:58 HDL Cholesterol 36 mg/dL (23-92) 03/26/17 18:58 TSH 0.95 uIU/ml (0.34-5.60) 03/26/17 18:58 Random Vancomycin 19.9 ug/mL (5.0-40.0) 03/30/17 06:00 - Physical Exam Vitals and I&O: Vital Signs Temp 97.8 F 03/30/17 16:00 Pulse 68 03/30/17 16:52 Resp 17 03/31/17 04:00 BP 110/63 03/30/17 16:52 Pulse Ox 99 03/30/17 16:00 Intake & Output 03/30/17 03/31/17 03/31/17 18:59 06:59 18:59 Intake Total 50 400 Balance 50 400 Weight (lbs) 88.451 kg Intake: Intake, IV Amount 50 Cefepime 1 gm In Sodium 50 Chloride 0.9% 50 ml @ 100 mls/hr IV Q12HR [facility] Rx#: [id number] Oral 400 Other: # Voids 4 # Bowel Movements 1 Active Medications: Current Medications Amlodipine Besylate (Norvasc) 5 mg PO DAILY [facility] Stop: 05/26/17 11:29 Last Admin: 03/30/17 08:37 Dose: Not Given Bupropion HCl (Wellbutrin Sr) 150 mg PO DAILY [facility] PRN Reason: Protocol Stop: 05/27/17 08:59 Last Admin: 03/30/17 08:45 Dose: 150 mg Buspirone HCl (Buspar) 15 mg PO DAILY [facility] Stop: 05/27/17 08:59 Last Admin: 03/30/17 08:44 Dose: 15 mg Carvedilol (Coreg) 12.5 mg PO BID [place] Stop: 05/26/17 16:59 Last Admin: 03/30/17 16:52 Dose: 12.5 mg Epoetin Jacek (Epogen) 4,000 units IVP MoWeFr [place] Stop: 05/27/17 17:59 Last Admin: 03/30/17 17:18 Dose: Not Given Cefepime HCl 0.5 gm/ Dextrose 50 mls @ 100 mls/hr IV Q24HR [place] Stop: 05/30/17 08:59 Insulin Aspart (Novolog) 0 units SUBQ Q6HR [place] PRN Reason: Protocol Stop: 05/26/17 00:00 Last Admin: 03/31/17 07:00 Dose: Not Given Insulin Human Isoph/Insulin Regular (Novolin 70/30) 20 units SUBQ HS [place] PRN Reason: Protocol Stop: 05/25/17 21:29 Last Admin: 03/30/17 22:20 Dose: 20 units Insulin Human Isoph/Insulin Regular (Novolin 70/30) 30 units SUBQ QDAC [place] PRN Reason: Protocol Stop: 05/26/17 07:29 Last Admin: 03/31/17 07:57 Dose: Not Given Lactobacillus Rhamnosus (Culturelle 15b) 1 each PO DAILY [facility] Stop: 05/30/17 08:59 Lactulose (Cephulac) 20 gm PO BID [facility] Stop: 05/26/17 13:44 Last Admin: 03/30/17 16:52 Dose: 20 gm Lisinopril (Zestril) 10 mg PO DAILY [facility] Stop: 05/27/17 08:59 Last Admin: 03/30/17 08:37 Dose: Not Given Miscellaneous (Clinical Monitoring) 1 ea [facility] PRN PRN PRN Reason: CEFEPIME RENAL DOSE Stop: 05/29/17 12:02 Miscellaneous (Probiotic Screen) 1 ea [facility] PRN PRN PRN Reason: PROTOCOL Stop: 05/29/17 14:23 Sevelamer Carbonate (Renvela) 800 mg PO TIDWM [facility] Stop: 05/26/17 16:59 Last Admin: 03/30/17 16:51 Dose: 800 mg Nutritional Asmnt/Malnutr-PDOC - Dietary Evaluation Malnutrition Findings (Please click <Entered> for more info): Nutritional Asmnt/Malnutrition Start: 03/28/17 15: 11 Text: Status: Complete Freq: Document 03/28/17 15:11 SANTIAGO (Rec: 03/28/17 15:37 [email or web address] [id number]) Nutritional Asmnt/Malnutrition Patient General Information Nutritional Screening High Risk Consult Diagnosis left arm cellulitis Pertinent Medical Hx/Surgical Hx ESRD on HD, dementia Subjective Information Consult received for DM. Pt seen sitting on bed having lunch at time of visit. Pt reported good appetite, no food preference. Per EMR, PO intake 100% of breakfast on . Per notes, pt has dialysis today. Current Diet Order/ Nutrition Support Regular Pertinent Medications novolog, novolin, cephulac, vancomycin, renvela Pertinent Labs 03/28 Na 134, K 4.5, Cl 101, BUN 66, Cr 5.5, Glucose 92, POC 93-136, Ca 8.0, Phos 4.5 Nutritional Hx/Data Height 1.57 m Height (Calculated Centimeters) 157.5 Current Weight (lbs) 89.993 kg Weight (Calculated Kilograms) 90.0 Weight (Calculated Grams) 04763.7 [place] Body Weight 110 % [place] Body Weight 180 Body Mass Index (BMI) 36.3 Weight Status Obese GI Symptoms GI Symptoms None Last BM none Difficult in: None Skin Integrity/Comment: right upper arm A/V shut area wound Estimated Nutritional Goals BEE in Kcals: Adj wt of IBW Calories/Kcals/Kg 25-30 Kcals Calculated 4344-1966 Protein: Adj wt of IBW Protein g/k-1.2 Protein Calculated 60-72 Fluid: ml 1500-1800ml (1ml/kcal) or per MD Nutritional Problem 2. Problem Problem increased nutrition needs ( protein) Etiology increased protein loss and wound Signs/Symptoms: pt on HD and left arm cellulitis 1. Problem Problem altered nutrition related lab values Etiology hx of ESRD Signs/Symptoms: BUN 66, Cr 5.5 Malnutrition Alert Protein-Calorie Malnutrition N/A Is there a minimum of two criteria No selected? Query Text:Check all the applicable criteria. A minimum of two criteria are recommended for diagnosis of either severe or non-severe malnutrition. Intervention/Recommendation Comments 1. Continue with current diet as ordered. Encouraged protein intake. 2. Monitor PO intake, wt, labs and skin integrity 3. F/U as moderate risk in 3-5 days, 2/1-2/3 Expected Outcomes/Goals Expected Outcomes/Goals 1. PO intake to meet at least 75% of nutritional needs. 2. Wt stability, skin to remain intact, labs to improve
[2017-03-31] MEDS ORDERED: Lactobacillus Rhamnosus GG 15 Billion CFU CAP.SPRINK PO SCH (09:00)
[2017-03-31] MEDS: Lactulose 10 Gm/15 mL 30mL UDC PO SCH ×3 (09:42→18:17)
--- NOTE | 2017-03-31 13:05 | Infectious Disease Prog Note ---
Infectious Disease Subjective - Review of Systems Service Date: 03/31/17 Subjective: No change, no fever. Infectious Disease Objective - Results Result Diagrams: 03/30/17 05:20 03/30/17 05:20 Recent Labs: Laboratory Last Values WBC 9.8 Th/cmm (4.8-10.8) 03/30/17 05:20 RBC 3.25 Mil/cmm (3.80-5.10) L 03/30/17 05:20 Hgb 10.5 gm/dL (12-16) L 03/30/17 05:20 Hct 31.4 % (41.0-60) L D 03/30/17 05:20 MCV 96.7 fl (81-100) 03/30/17 05:20 MCH 32.3 pg (27.0-31.0) H 03/30/17 05:20 MCHC Differential 33.5 pg (28.0-36.0) 03/30/17 05:20 RDW 14.1 % (11.5-20.0) 03/30/17 05:20 Plt Count 332 Th/cmm (150-400) 03/30/17 05:20 MPV 7.5 fl 03/30/17 05:20 Neutrophils % 68.9 % (40.0-80.0) 03/30/17 05:20 Lymphocytes % 20.4 % (20.0-50.0) 03/30/17 05:20 Monocytes % 5.3 % (2.0-10.0) 03/30/17 05:20 Eosinophils % 5.3 % (0.0-5.0) H 03/30/17 05:20 Basophils % 0.1 % (0.0-2.0) 03/30/17 05:20 PT 10.1 SECONDS (9.5-11.5) 03/28/17 05:16 INR 0.97 (0.5-1.4) 03/28/17 05:16 PTT (Actin FS) 26.2 SECONDS (26.0-38.0) 03/28/17 05:16 Sodium 132 mEq/L (136-145) L 03/30/17 05:20 Potassium 4.6 mEq/L (3.5-5.1) 03/30/17 05:20 Chloride 101 mEq/L (98-107) 03/30/17 05:20 Carbon Dioxide 21.2 mEq/L (21.0-31.0) 03/30/17 05:20 Anion Gap 14.4 (7.0-16.0) 03/30/17 05:20 BUN 45 mg/dL (7-25) H 03/30/17 05:20 Creatinine 4.1 mg/dL (0.6-1.2) H* 03/30/17 05:20 Est GFR ( Amer) 14.3 ml/min (>90) 03/30/17 05:20 Est GFR (Non-Af Amer) 11.8 ml/min 03/30/17 05:20 BUN/Creatinine Ratio 11.0 03/30/17 05:20 Glucose 113 mg/dL (70-105) H 03/30/17 05:20 POC Glucose 197 MG/DL (70 - 105) H 03/31/17 11:42 Hemoglobin A1c % 8.5 % (4.0-6.0) H 03/26/17 18:58 Whole Bld Lactic Acid 1.33 mmol/L (0.60-1.99) 03/26/17 18:58 Calcium 8.4 mg/dL (8.6-10.3) L 03/30/17 05:20 Phosphorus 4.5 mg/dL (2.5-5.0) 03/28/17 05:16 Iron 95 ug/dL (27-159) 03/28/17 05:16 TIBC 198 ug/dL (250-450) L 03/28/17 05:16 Iron Saturation 48 % (15-55) 03/28/17 05:16 Unsaturated IBC 103 ug/dL (131-425) L 03/28/17 05:16 Ferritin 910 ng/mL (15-150) H 03/28/17 05:16 Total Bilirubin 0.3 mg/dL (0.3-1.0) 03/30/17 05:20 AST 12 U/L (13-39) L 03/30/17 05:20 ALT 11 U/L (7-52) 03/30/17 05:20 Alkaline Phosphatase 61 U/L (34-104) 03/30/17 05:20 C-Reactive Protein 4.2 mg/dL (0.0-0.9) H 03/26/17 18:58 B-Natriuretic Peptide 173.0 pg/mL (5.0-100.0) H 03/26/17 18:58 Total Protein 6.7 gm/dL (6.0-8.3) 03/30/17 05:20 Albumin 3.4 gm/dL (3.7-5.3) L 03/30/17 05:20 Globulin 3.3 gm/dL 03/30/17 05:20 Albumin/Globulin Ratio 1.0 (1.0-1.8) 03/30/17 05:20 Triglycerides 295 mg/dL (<150) H 03/26/17 18:58 Cholesterol 153 mg/dL (<200) 03/26/17 18:58 LDL Cholesterol Direct 92 mg/dL (75-193) 03/26/17 18:58 HDL Cholesterol 36 mg/dL (23-92) 03/26/17 18:58 TSH 0.95 uIU/ml (0.34-5.60) 03/26/17 18:58 Random Vancomycin 19.9 ug/mL (5.0-40.0) 03/30/17 06:00 - Physical Exam Vitals and I&O: Vital Signs Temp 97.4 F 03/31/17 08:00 Pulse 67 03/31/17 09:46 Resp 17 03/31/17 08:00 BP 172/69 03/31/17 09:46 Pulse Ox 100 03/31/17 08:00 Intake & Output 03/30/17 03/31/17 03/31/17 18:59 06:59 18:59 Intake Total 50 400 Balance 50 400 Weight (lbs) 88.451 kg Intake: Intake, IV Amount 50 Cefepime 1 gm In Sodium 50 Chloride 0.9% 50 ml @ 100 mls/hr IV Q12HR [facility] Rx#: [id number] Oral 400 Other: # Voids 4 # Bowel Movements 1 Active Medications: Current Medications Amlodipine Besylate (Norvasc) 5 mg PO DAILY [facility] Stop: 05/26/17 11:29 Last Admin: 03/31/17 09:45 Dose: 5 mg Bupropion HCl (Wellbutrin Sr) 150 mg PO DAILY [facility] PRN Reason: Protocol Stop: 05/27/17 08:59 Last Admin: 03/31/17 09:43 Dose: 150 mg Buspirone HCl (Buspar) 15 mg PO DAILY [place] Stop: 05/27/17 08:59 Last Admin: 03/31/17 09:42 Dose: 15 mg Carvedilol (Coreg) 12.5 mg PO BID [facility] Stop: 05/26/17 16:59 Last Admin: 03/31/17 09:45 Dose: 12.5 mg Epoetin Jacek (Epogen) 4,000 units IVP MoWeFr [facility] Stop: 05/27/17 17:59 Last Admin: 03/30/17 17:18 Dose: Not Given Cefepime HCl 0.5 gm/ Dextrose 50 mls @ 100 mls/hr IV Q24HR [facility] Stop: 05/30/17 08:59 Last Admin: 03/31/17 10:54 Dose: Not Given Insulin Aspart (Novolog) 0 units SUBQ Q6HR [place] PRN Reason: Protocol Stop: 05/26/17 00:00 Last Admin: 03/31/17 12:17 Dose: 2 units Insulin Human Isoph/Insulin Regular (Novolin 70/30) 20 units SUBQ HS [facility] PRN Reason: Protocol Stop: 05/25/17 21:29 Last Admin: 03/30/17 22:20 Dose: 20 units Insulin Human Isoph/Insulin Regular (Novolin 70/30) 30 units SUBQ QDAC [place] PRN Reason: Protocol Stop: 05/26/17 07:29 Last Admin: 03/31/17 07:57 Dose: Not Given Lactobacillus Rhamnosus (Culturelle 15b) 1 each PO DAILY [place] Stop: 05/30/17 08:59 Last Admin: 03/31/17 09:42 Dose: 1 each Lactulose (Cephulac) 20 gm PO BID [facility] Stop: 05/26/17 13:44 Last Admin: 03/31/17 09:42 Dose: 20 gm Lisinopril (Zestril) 10 mg PO DAILY [facility] Stop: 05/27/17 08:59 Last Admin: 03/31/17 09:46 Dose: 10 mg Miscellaneous (Clinical Monitoring) 1 ea PRN PRN PRN Reason: CEFEPIME RENAL DOSE Stop: 05/29/17 12:02 Miscellaneous (Probiotic Screen) 1 ea PRN PRN PRN Reason: PROTOCOL Stop: 05/29/17 14:23 Miscellaneous (Gentamicin Iv Per Pharmacy) 1 ea PRN PRN PRN Reason: PROTOCOL Stop: 05/30/17 12:29 Sevelamer Carbonate (Renvela) 800 mg PO TIDWM [place] Stop: 05/26/17 16:59 Last Admin: 03/31/17 12:42 Dose: 800 mg General: no acute distress, well developed, well nourished, cachectic HEENT: atraumatic, normocephalic Neck: supple, no thyromegaly Cardiovascular: S1S2, regular Lungs: clear to auscultation bilaterally, clear to percussion Abdomen: soft, no tender Extremities: AVF/AVG, other (wound is healing better.), no cyanosis, no clubbing , no edema Neurological: awake, alert, oriented Infectious Disease Assmt/Plan - Assessment Assessment: 1. Left arm cellulitis. AV graft ionfection?. 2. Left arm wound. 3. CKD 5 on HD. - Plan Plan: Change antibiotics to gentamicin. Nutritional Asmnt/Malnutr-PDOC - Dietary Evaluation Malnutrition Findings (Please click <Entered> for more info): Nutritional Asmnt/Malnutrition Start: 03/28/17 15: 11 Text: Status: Complete Freq: Document 03/28/17 15:11 SANTIAGO (Rec: 03/28/17 15:37 MAGUE [email or web address]) Nutritional Asmnt/Malnutrition Patient General Information Nutritional Screening High Risk Consult Diagnosis left arm cellulitis Pertinent Medical Hx/Surgical Hx ESRD on HD, dementia Subjective Information Consult received for DM. Pt seen sitting on bed having lunch at time of visit. Pt reported good appetite, no food preference. Per EMR, PO intake 100% of breakfast on . Per notes, pt has dialysis today. Current Diet Order/ Nutrition Support Regular Pertinent Medications novolog, novolin, cephulac, vancomycin, renvela Pertinent Labs 03/28 Na 134, K 4.5, Cl 101, BUN 66, Cr 5.5, Glucose 92, POC 93-136, Ca 8.0, Phos 4.5 Nutritional Hx/Data Height 1.57 m Height (Calculated Centimeters) 157.5 Current Weight (lbs) 89.993 kg Weight (Calculated Kilograms) 90.0 Weight (Calculated Grams) 03601.7 [place] Body Weight 110 % [place] Body Weight 180 Body Mass Index (BMI) 36.3 Weight Status Obese GI Symptoms GI Symptoms None Last BM none Difficult in: None Skin Integrity/Comment: right upper arm A/V shut area wound Estimated Nutritional Goals BEE in Kcals: Adj wt of IBW Calories/Kcals/Kg 25-30 Kcals Calculated 3104-3536 Protein: Adj wt of IBW Protein g/k-1.2 Protein Calculated 60-72 Fluid: ml 1500-1800ml (1ml/kcal) or per MD Nutritional Problem 2. Problem Problem increased nutrition needs ( protein) Etiology increased protein loss and wound Signs/Symptoms: pt on HD and left arm cellulitis 1. Problem Problem altered nutrition related lab values Etiology hx of ESRD Signs/Symptoms: BUN 66, Cr 5.5 Malnutrition Alert Protein-Calorie Malnutrition N/A Is there a minimum of two criteria No selected? Query Text:Check all the applicable criteria. A minimum of two criteria are recommended for diagnosis of either severe or non-severe malnutrition. Intervention/Recommendation Comments 1. Continue with current diet as ordered. Encouraged protein intake. 2. Monitor PO intake, wt, labs and skin integrity 3. F/U as moderate risk in 3-5 days, 2/-2/3 Expected Outcomes/Goals Expected Outcomes/Goals 1. PO intake to meet at least 75% of nutritional needs. 2. Wt stability, skin to remain intact, labs to improve
[2017-03-31] MEDS ORDERED: Gentamicin 180 MG in Sodium Chloride 0.9% 100 ML IV ONE (14:00)
--- NOTE | 2017-04-01 00:38 | Progress Notes ---
DATE: PSYCHIATRIC PROGRESS NOTE SUBJECTIVE: Chart reviewed and the patient interviewed. Also discussed the patient's condition with the staff and reviewed records and labs. The patient remains anxious and in a depressed mood. The patient also is still guarded and withdrawn. She also interacting minimally with others. The patient denies any suicidal or homicidal ideations and she is having episodes of confusion and angry mood. Otherwise, the patient is compliant with taking Wellbutrin, with no side effects of Wellbutrin. ASSESSMENT: The patient is depressed, but not suicidal. TREATMENT PLAN: Continue to monitor her behavior and Wellbutrin and continue medical workup as per Dr. Galicia and continue to follow up. [facility]# [id number]
--- NOTE | 2017-04-23 18:16 | Discharge Summary ---
DATE OF DISCHARGE: 03/31/2017 The patient was admitted on 03/26/2017, was discharged to [place] on 03/31/2017. This patient's initial admitting diagnosis was left arm cellulitis, rule out sepsis, history of end-stage renal disease and infected left shunt and the patient was started on Zyvox, was changed to vancomycin by Dr. Kunz. The patient is still having problem with her infection. Had Nephrology consult with Dr. Nas Ramirez and he felt that this patient should go to [facility] for completion of her antibiotic to see whether her stent infection has improved, shunt and arrangements were made for that and the patient will be going to [place]. I will be following the patient. DIAGNOSES: Left arm cellulitis still there, but improving and history of end-stage renal disease, right arm [id number]. JOB# [id number]
== END 2017-03-31 23:30 | DRG 314 ==
LOC: ER 17:33 → TELE 19:30
PROVIDERS: ADMIT Internal Medicine; ATTEND Internal Medicine
PROC: 5A1D70Z Performance of Urinary Filtration, Intermittent, Less than 6 Hours Per Day (ICD-10-PCS; principal; 2017-03-28)
PROC: 5A1D70Z Performance of Urinary Filtration, Intermittent, Less than 6 Hours Per Day (ICD-10-PCS; 2017-03-30)
DX: T82.7XXA Infection and inflammatory reaction due to other cardiac and vascular devices, implants and grafts, initial encounter (principal); N18.6 End stage renal disease; I12.0 Hypertensive chronic kidney disease with stage 5 chronic kidney disease or end stage renal disease; E11.22 Type 2 diabetes mellitus with diabetic chronic kidney disease; F33.2 Major depressive disorder, recurrent severe without psychotic features; T82.898A Other specified complication of vascular prosthetic devices, implants and grafts, initial encounter; F20.9 Schizophrenia, unspecified; S51.802A Unspecified open wound of left forearm, initial encounter; L03.114 Cellulitis of left upper limb; F03.90 Unspecified dementia, unspecified severity, without behavioral disturbance, psychotic disturbance, mood disturbance, and anxiety; Z79.4 Long term (current) use of insulin; Z99.2 Dependence on renal dialysis; F17.210 Nicotine dependence, cigarettes, uncomplicated; E66.9 Obesity, unspecified; I25.2 Old myocardial infarction; I25.10 Atherosclerotic heart disease of native coronary artery without angina pectoris; Y83.8 Other surgical procedures as the cause of abnormal reaction of the patient, or of later complication, without mention of misadventure at the time of the procedure; Y92.89 Other specified places as the place of occurrence of the external cause; Z68.34 Body mass index [BMI] 34.0-34.9, adult; Z90.49 Acquired absence of other specified parts of digestive tract
CPT/HCPCS: 36415-UA; 78806-TC; 80048-TC; 80053-TC; 80061-TC; 80202-TC; 82728-90; 82948-90; 83036-90; 83540-90; 83550-90; 83605; 83880-TC; 84100-TC; 84443-TC; 85025-TC; 85610-TC; 86141-TC; 87070-90; 90937; 93005; 93931-LT-TC; 96374; A9521; J0692; J0885; J1580; J1644; J1815; J2020; J3370; J7030; Z7610